=== PATIENT | female | born 1990 | race Caucasian/White ===

== ENCOUNTER 2018-01-26 10:20 | Outpatient (RCR) | payer OTHER, SELFPAY | END 2018-01-26 23:59 | LOC: NS 10:20 | PROVIDERS: Visit Provider Advanced Practice Midwife | DX: O25.10 Malnutrition in pregnancy, unspecified trimester (principal); O26.11 Low weight gain in pregnancy, first trimester; Z3A.12 12 weeks gestation of pregnancy | CPT/HCPCS: 97802 ==

== ENCOUNTER 2018-06-19 08:20 | Inpatient (IN) | payer OTHER, SELFPAY ==
[2018-06-19 07:53] VITALS: BMI 29.2
[2018-06-19 08:14] LABS: ROM Internal Control Test YES-OK TO RESULT pt. (Internal QC)
[2018-06-19 08:15] LABS: ROM Patient Test POSITIVE (Negative)
--- NOTE | 2018-06-19 08:30 | PCM.HP.OB ---
- Problem List (1) Anxiety associated with birthing process Status: Acute (2) PROM (premature rupture of membranes) Status: Acute Qualifiers: PROM onset of labor timing: onset of labor within 24 hours of rupture PROM gestational age: full term Qualified Code(s): O42.02 - Full-term premature rupture of membranes, onset of labor within 24 hours of rupture History Date of Admission: 06/19/18 Final ANCA: 06/29/18 Final ANCA Source: US <20 weeks Gestational age: 38 Weeks and 4 Days History of this : This is a 27 year-old, G [], P [], at weeks gestational age. Allergies No Known Allergies Allergy (Verified 06/19/18 07:53) Home Medications: Home Medications Pnv No.95/Ferrous Fum/Folic AC [ Vitamin Tablet] 1 each PO DAILY 06/19/18 Smoking Status: Never smoker Alcohol: None Number of Fetus(es): 1 Heart Tracing: Baseline 140, moderate variability, + accels, no decels noted TOCO Analysis: Ctx q 2-10 minutes, palpate mild to moderately strong History Past Pregnancies: Past Pregnancies Delivery Date Name GA/Weeks Outcome Route Weight Gender Labor Length Anesthesia Delivery Location Provider FOB Labs: GBS Neg, O Neg Abs Neg, GC/CT Neg, Urine Tox Neg, Urine Culture Neg, CF Screening Neg, HIV NR, HepBsAg Neg, Rubella Imm, Syphilis Neg, Sequential Screen Neg, 1 hour GCT elevated ---> 3 hour GTT WNL Expected Delivery Method: Spontaneous Vaginal Describe any other labor & delivery plans:: Desires NCB, may be interested in Number of Visits: 13 Review of Systems Cardiovascular: Denies: Chest Pain, Edema Gastrointestinal: Denies: Abdominal Pain Genitourinary: Denies: Dysuria, Frequency, Urgency Gynecological: Reports: Vaginal discharge - small celar-pink discharge without odor - c/w amniotic fluid. Denies: Vaginal bleeding Musculoskeletal: Denies: Muscle pain Psychiatric: Reports: Anxiety Endocrine: Denies: Heat/ Cold Intolerance Physical Exam Vitals: See nursing note for vital signs - VSS, Afebrile General: Alert, Oriented x3, Cooperative Cardiovascular: Regular rate, Regular Rhythm Lungs: Normal air movement Abdomen: Soft, Non Tender, Non-Distended, Appropriate for Gestational Age - EFW = 7#-7.5# Extremities:: No edema Neurological: Cranial nerves II-XII grossly intact, Deep Tendon Reflexes 2+/4 and Symmetrical REPLENISHMENT MERCHANDISING ASSOCIATE: Normal external genitalia Estimated gestational size: Appropriate for gestational size Presentation: Cephalic - SVE deferred at this time Assessment/Plan All Active Problems Anxiety associated with birthing process (Acute) PROM (premature rupture of membranes) (Acute) This is a 27 year-old, G [1], P [0], at 38+4 weeks gestational age, +PROM, Category I FHT. P: 1) Admit patient - Dr. Coughlin back-up physician notified of admission 2) Expectant management at this time 3) Patient may ambulate and eat regular diet at this time 4) Will assess cervix with change in maternal or status or once patient is actively william Corina FREITAS
--- NOTE | 2018-06-19 08:35 | HP.PCM_ITS ---
- Problem List (1) Anxiety associated with birthing process Status: Acute (2) PROM (premature rupture of membranes) Status: Acute Qualifiers: PROM onset of labor timing: onset of labor within 24 hours of rupture PROM gestational age: full term Qualified Code(s): O42.02 - Full-term premature rupture of membranes, onset of labor within 24 hours of rupture History Date of Admission: 06/19/18 Final ANCA: 06/29/18 Final ANCA Source: US <20 weeks Gestational age: 38 Weeks and 4 Days History of this : This is a 27 year-old, G [], P [], at weeks gestational age. Allergies No Known Allergies Allergy (Verified 06/19/18 07:53) Home Medications: Home Medications Pnv No.95/Ferrous Fum/Folic AC [ Vitamin Tablet] 1 each PO DAILY 06/19/18 Smoking Status: Never smoker Alcohol: None Number of Fetus(es): 1 Heart Tracing: Baseline 140, moderate variability, + accels, no decels noted TOCO Analysis: Ctx q 2-10 minutes, palpate mild to moderately strong History Past Pregnancies: Past Pregnancies Delivery Date Name GA/Weeks Outcome Route Weight Gender Labor Length Anesthesia Delivery Location Provider FOB Labs: GBS Neg, O Neg Abs Neg, GC/CT Neg, Urine Tox Neg, Urine Culture Neg, CF Sc reening Neg, HIV NR, HepBsAg Neg, Rubella Imm, Syphilis Neg, Sequential Screen Neg, 1 hour GCT elevated ---> 3 hour GTT WNL Expected Infant Delivery Method: Spontaneous Vaginal Describe any other labor & delivery plans:: Desires NCB, may be interested in Number of Visits: 13 Review of Systems Cardiovascular: Denies: Chest Pain, Edema Gastrointestinal: Denies: Abdominal Pain Genitourinary: Denies: Dysuria, Frequency, Urgency Gynecological: Reports: Vaginal discharge - small celar-pink discharge without odor - c/w amniotic fluid. Denies: Vaginal bleeding Musculoskeletal: Denies: Muscle pain Psychiatric: Reports: Anxiety Endocrine: Denies: Heat/ Cold Intolerance Physical Exam Vitals: See nursing note for vital signs - VSS, Afebrile General: Alert, Oriented x3, Cooperative Cardiovascular: Regular rate, Regular Rhythm Lungs: Normal air movement Abdomen: Soft, Non Tender, Non-Distended, Appropriate for Gestational Age - EFW = 7#-7.5# Extremities:: No edema Neurological: Cranial nerves II-XII grossly intact, Deep Tendon Reflexes 2+/4 and Symmetrical OPERATIONS ARCHITECT: Normal external genitalia Estimated gestational size: Appropriate for gestational size Presentation: Cephalic - SVE deferred at this time Assessment/Plan All Active Problems Anxiety associated with birthing process (Acute) PROM (premature rupture of membranes) (Acute) This is a 27 year-old, G [1], P [0], at 38+4 weeks gestational age, +PROM, Category I FHT. P: 1) Admit patient - Dr. Coughlin back-up physician notified of admission 2) Expectant management at this time 3) Patient may ambulate and eat regular diet at this time 4) Will assess cervix with change in maternal or status or once patient is actively william Corina Gutiérrez APRN-SOPHIA
[2018-06-19] MEDS: Lactated Ringers 1,000 ML 50 ML IV (09:10)
[2018-06-19 09:32] LABS: Hematocrit 40.2 % (37-47); Hemoglobin 13.2 g/dl (12.0-15.0); Mean Corp Hgb Conc 32.8 g/gl (32-36); Mean Corpuscular Hgb 30.5 pg (27.0-32.0); Mean Corpuscular Volume 92.8 fL (81-99); Mean Platelet Vol. 9.8 fl (6.2-12.0); Platelet Count 170 K/mm3 (150-450); RBC Distribution Width CV 14.3 % (11.6-14.6); RBC Distribution Width SD 48.8 fl (35.1-43.9); Red Blood Count 4.33 M/mm3 (4.2-5.4); White Blood Count 9.6 K/mm3 (4.4-11.0)
[2018-06-19 09:33] LABS: Scan Indicated on CBC? Y/N NO
--- NOTE | 2018-06-19 11:12 | PCM.PN.OB ---
Patient Problems: Active and Suspected Problems Anxiety associated with birthing process (Acute) PROM (premature rupture of membranes) (Acute) Subjective: Patient moving around the room ambulating, reporting that she continues to have contractions irregular q 2-5 minutes apart and lasting 30-60 seconds. Patient notes continued to desire for expectant management at this time. Patient continues to decline SVE at this time, she also declines discussion re: initiation of IV pitocin for labor augmentation. FHT remains category I at this time. Will continue to support patient, encourage position changes. H+K recommended, sitting/rocking on birthing ball also discussed. Patient at this time has been offered nipple stimulation with breast pump or manual stimulation - she continues to decline. Have discussed option for castor oil with patient - she is considering though castor oil is not in stock with [facility] pharmacy. Will continue to monitor patient closely. Anticipate checking cervix by 12 hours ruptured if no active labor noted. Corina Gutiérrez APRN-CNM - Physical Exam Weight: 165 lb 3.2 oz Body Mass Index (BMI) 29.2 Laboratory Tests Past 24 Hrs 06/19/18 06/19/18 06/19/18 07:40 09:10 09:10 WBC 9.6 RBC 4.33 Hgb 13.2 Hct 40.2 MCV 92.8 MCH 30.5 MCHC 32.8 RDW 14.3 RDW Differential 48.8 H Plt Count 170 MPV 9.8 Vag Amniotic Fld Detect POSITIVE H Blood Type O NEGATIVE Antibody Screen TNP 06/19/18 09:10 WBC RBC Hgb Hct MCV MCH MCHC RDW RDW Differential Plt Count MPV Vag Amniotic Fld Detect Blood Type Antibody Screen NEGATIVE Medical Necessity - Tobacco Use Smoking Status: Never smoker Assessment/Plan All Active Problems Anxiety associated with birthing process (Acute) PROM (premature rupture of membranes) (Acute)
--- NOTE | 2018-06-19 14:13 | PCM.PN.BLA ---
Progress Note Patient currently sitting on peanut ball, rocking back and forth on the floor. Patient has been encouraged to ambulate and to change positions and move around. Discussion re: use of castor oil for labor augmentation again discussed. Patient reports that it seems like contractions may be slowing down. At this point, her and are becoming more open to option of IV pitocin. Encouraged cervical check at this time. Patient desires to wait 2 hours until close to 12 hours ruptured for that check. Discussed again benefits/risks/alternatives of expectant vs. active labor management. Infection risk again reviewed, patient again desires to wait for first cervical check until 4:00pm or 12 hours post rupture. Encouraged continued ambulation and position changes. Will consider cervical sweep also when cervical check is done. Corina Gutiérrez APRN-SOPHIA
--- NOTE | 2018-06-19 16:39 | PN.OBGYN_ITS ---
Patient Problems: Active and Suspected Problems Anxiety associated with birthing process (Acute) PROM (premature rupture of membranes) (Acute) Subjective: Patient pacing around the room, reporting that her contractions have spaced out a little. She is trying to be mobile and active now to bring contractions closer together. Decision mutually made to check patient's cervix at this time. Objective: VSS, Afebrile - last temp 99.2F FHT baseline 140 moderate variability, + accels, no decels noted Ctx irregular q 2-8 minutes, palpate mild to moderate. Ctx duration 30-70 seconds SVE = 4/50/-2, + blood show noted - Physical Exam General: Alert, Oriented x3, Cooperative Neck: Supple Lungs: Clear to auscultation Cardiovascular: Regular rate, Regular Rhythm, No murmurs Abdomen: Soft, Non Tender, Non-Distended, No Hepato-splenomegaly, Gravid Extremities: No edema Neurological: Cranial nerves II-XII grossly intact, Deep Tendon Reflexes 2+/4 and Symmetrical Weight: 165 lb 3.2 oz Body Mass Index (BMI) 29.2 Intake and Output for Last 24 Hours 06/17/18 06/18/18 06/19/18 23:59 23:59 23:59 Intake Total 1750 / 1750 Output Total 950 / 950 Balance 800 / 800 Laboratory Tests Past 24 Hrs 06/19/18 06/19/18 06/19/18 07:40 09:10 09:10 WBC 9.6 RBC 4.33 Hgb 13.2 Hct 40.2 MCV 92.8 MCH 30.5 MCHC 32.8 RDW 14.3 RDW Differential 48.8 H Plt Count 170 MPV 9.8 Vag Amniotic Fld Detect POSITIVE H Blood Type O NEGATIVE Antibody Screen TNP 06/19/18 09:10 WBC RBC Hgb Hct MCV MCH MCHC RDW RDW Differential Plt Count MPV Vag Amniotic Fld Detect Blood Type Antibody Screen NEGATIVE Medical Necessity - Tobacco Use Smoking Status: Never smoker Assessment/Plan All Active Problems Anxiety associated with birthing process (Acute) PROM (premature rupture of membranes) (Acute) 27 y/o @ 38.4 weeks, SROM x 12 hours, Category I FHT P: 1) Recommend IV pitocin for labor augmentation at this time. Benefits/ris ks/alternatives of this method reviewed - patient desires to talk with her about this option. Continues to decline other natural induction methods. Had planned for membrane sweep with SVE but then during exam she declined that also. 2) Dr. Coughlin appraised of patient progress - she also recommends pitocin at this time 3) Reassess cervix PRN with change in maternal or status Corina FREITAS
--- NOTE | 2018-06-19 17:38 | PCM.PN.BLA ---
Progress Note This provider again is in patient room discussing recommendation for pitocin augmentation at this time. Patient again has many questions re: this medication and desires a repeat discussion on benefits/risks/alternatives. Infection risk of prolonged rupture of membranes discussed. Risks of FHT variable decelerations with prolonged rupture of membranes also reviewed. Patient reports fears re: birthing process. Discussed again options for epidural as patient is concerned of sensations as baby is emerging and . Patient again choosing to decline this option - reports that this will make her feel not in control. Patient reports that she has made decision that we can start pitocin soon. Encouraged patient again for us to start immediately to decrease infection risk. Corina FREITAS
[2018-06-19] MEDS: Oxytocin 30 units/NS 500 ml 30 UNITS/500 ML IV.SOLN IV (18:14)
--- NOTE | 2018-06-19 19:57 | PCM.PN.OB ---
Patient Problems: Active and Suspected Problems Anxiety associated with birthing process (Acute) PROM (premature rupture of membranes) (Acute) Subjective: Patient sitting up in bed at this time, currently receiving IV pitocin per labor augmentation protocol. Currently at 4 milliunits with plan to increase to 6 milliunits soon. Patient continues to have many questions re: what to expect with pitocin, what to expect with labor and and how she will know that the baby is coming. Labor teaching done by this provider at the bedside. Objective: VSS, Afebrile - last temp 99.1F FHT baseline 135 moderate variability, no decels, + accels Ctx q 2-5 minutes palpate mild to moderate in strength SVE = deferred d/t patient declining an exam - Physical Exam General: Alert, Oriented x3, Cooperative Psych/Mental Status: Anxious Weight: 165 lb 3.2 oz Body Mass Index (BMI) 29.2 Intake and Output for Last 24 Hours 06/17/18 06/18/18 06/19/18 23:59 23:59 23:59 Intake Total 1750 / 1750 Output Total 950 / 950 Balance 800 / 800 Laboratory Tests Past 24 Hrs 06/19/18 06/19/18 06/19/18 07:40 09:10 09:10 WBC 9.6 RBC 4.33 Hgb 13.2 Hct 40.2 MCV 92.8 MCH 30.5 MCHC 32.8 RDW 14.3 RDW Differential 48.8 H Plt Count 170 MPV 9.8 Vag Amniotic Fld Detect POSITIVE H Blood Type O NEGATIVE Antibody Screen TNP 06/19/18 09:10 WBC RBC Hgb Hct MCV MCH MCHC RDW RDW Differential Plt Count MPV Vag Amniotic Fld Detect Blood Type Antibody Screen NEGATIVE Medical Necessity - Tobacco Use Smoking Status: Never smoker Assessment/Plan All Active Problems Anxiety associated with birthing process (Acute) PROM (premature rupture of membranes) (Acute) 27 y/o @ 38.4 weeks, Category I FHT, SROM x 16 hours, Pitocin Labor Augmentation P: 1) Continue pitocin titration at this time 2) Reassess SVE PRN with changes to maternal or status 3) Anticipate Corina Gutiérrez APRN-CNM
--- NOTE | 2018-06-20 00:40 | PCM.PN.OB ---
Patient Problems: Active and Suspected Problems Anxiety associated with birthing process (Acute) PROM (premature rupture of membranes) (Acute) Subjective: Patient has been in and out of shower and bathtub, reports that she is starting to feel intense pelvic and rectal pressure and starting to feel urge to push. Patient and request SVE at this time to assess for labor progress. Objective: VSS, Afebrile FHT baseline 120, moderate variability, + accels, early decels noted Ctx q 1-3 minutes, strongly palpable. Pitocin at 8 milliunits at this time SVE = 8-9/90/0, baby ROE by Best's and assessment of sutures - Physical Exam General: Alert, Oriented x3, Cooperative HEENT: Atraumatic Lungs: Normal air movement Cardiovascular: Regular rate, Regular Rhythm Abdomen: Soft, Non Tender, Non-Distended Extremities: No edema Psych/Mental Status: Anxious Weight: 165 lb 3.2 oz Body Mass Index (BMI) 29.2 Intake and Output for Last 24 Hours 06/18/18 06/19/18 06/20/18 23:59 23:59 23:59 Intake Total 1750 / 1750 Output Total 950 / 950 Balance 800 / 800 Laboratory Tests Past 24 Hrs 06/19/18 06/19/18 06/19/18 07:40 09:10 09:10 WBC 9.6 RBC 4.33 Hgb 13.2 Hct 40.2 MCV 92.8 MCH 30.5 MCHC 32.8 RDW 14.3 RDW Differential 48.8 H Plt Count 170 MPV 9.8 Vag Amniotic Fld Detect POSITIVE H Blood Type O NEGATIVE Antibody Screen TNP 06/19/18 09:10 WBC RBC Hgb Hct MCV MCH MCHC RDW RDW Differential Plt Count MPV Vag Amniotic Fld Detect Blood Type Antibody Screen NEGATIVE Medical Necessity - Tobacco Use Smoking Status: Never smoker Assessment/Plan All Active Problems Anxiety associated with birthing process (Acute) PROM (premature rupture of membranes) (Acute) 27 y/o @ 38+5 weeks, Transition Stage of Labor, Category I FHT P: 1) Continue pitocin at current level at this time 2) Anticipate 3) Continue to support patient Corina FREITAS
[2018-06-20] MEDS: Oxytocin 30 units/NS 500 ml 30 UNITS/500 ML IV.SOLN 334 UNITS IV (01:50)
[2018-06-20] MEDS: Oxytocin 30 units/NS 500 ml 30 UNITS/500 ML IV.SOLN 167 UNITS IV (02:20)
--- NOTE | 2018-06-20 02:33 | PCM.OB.VAG ---
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 At that time patient having infrequent contractions but requested expectant management of labor. By 14 hours post SROM patient had consented to pitocin IV augmentation. Amniotic Membrane Rupture Type: Spontaneous at home Rupture of Membrane time: 06/19/18 @ 0400 Amniotic Fluid Description: Clear Final ANCA: 06/29/18 Gestational age: 38 Weeks and 5 Days Industry doctor who attended delivery (if requested by OB): Ayesha Davis Date of Procedure: 06/20/18 Pre-Operative Diagnosis: PROM with onset of labor @ 38+5 weeks Post-Operative Diagnosis: of viable boy baby, shoulder dystocia Surgery/ Procedure Performed: Spontaneous Vaginal Delivery Type of Anesthesia: None Description of Procedure: Patient progressed well and started to feel urge to bear down and push. Patient pushed well with maternal urge in hands and knees position until crown. Patient delivered head OA and shoulders were not initially forthcoming. Compound anterior shoulder noted. Patient flipped from H+K Lanny position to recumbent postion where Ish with Subrapubic Pressure was administered. Delivery not imminent. Rubins with attempt to deliver posterior arm (rt. arm) done and shoulders were then delivered and body quickly followed. delivered ROE position. See Shoulder Dystocia Summary. initially had poor tone and no respiratory effort. When infant placed on maternal abdomen and was dried and stimulated baby became vigorous and had spontaneous cry and respirations. Mouth and nose bulb suctioned. Umbilical cord clamped and cut and baby was handed off to awaiting pediatric team for evaluation. Apgars 8 and 9. weight pending. Placenta then delivered spontaneously via Price mechanism. Placenta intact with 3VC, placental triage WNL. FF to massage midline 2FB below umbilicus, 3rd stage pitocin infused per protocol for active management of the 3rd stage. EBL = 150cc. Upon inspection of vaginal vault, 1st degree perineal laceration noted and was repaired in the usual fashion under local 1% lidocaine analgesia and 3-0 Rapide suture. Sponge and needle count correct. Vaginal sweep negative. Dr. Coughlin notified of delivery. Bonding and [id number] initiated. Corina Gutiérrez SYSTEM ANALYST-CNM Presentation: Vertex, ROE Placental Delivery Description: Spontaneous Placenta Disposition: [facility] Cord Vessel Description: 3 Vessels Cord Entanglement: None Estimated Blood Loss: 150 A gender: Male (1 minute): 8 (5 minute): 9 Episiotomy Description: None Laceration: Perineal Extension/lac, 1st degree Medications given after delivery: IV Pitocin Complications: None
--- NOTE | 2018-06-20 02:37 | OP.PCM_ITS ---
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 At that time patient having infrequent contractions but requested expectant management of labor. By 14 hours post SROM patient had consented to pitocin IV augmentation. Amniotic Membrane Rupture Type: Spontaneous at home Rupture of Membrane time: 06/19/18 @ 0400 Amniotic Fluid Description: Clear Final ANCA: 06/29/18 Gestational age: 38 Weeks and 5 Days [place] doctor who attended delivery (if requested by OB): Ayesha Davis Date of Procedure: 06/20/18 Pre-Operative Diagnosis: PROM with onset of labor @ 38+5 weeks Post-Operative Diagnosis: of viable boy baby, shoulder dystocia Surgery/ Procedure Performed: Spontaneous Vaginal Delivery Type of Anesthesia: None Description of Procedure: Patient progressed well and started to feel urge to bear down and push. Patient pushed well with maternal urge in hands and knees position until crown. Patient delivered head OA and shoulders were not initially forthcoming. Compound anterior shoulder noted. Patient flipped from H+K Lanny position to recumbent postion where Ish with Subrapubic Pressure was administered. Delivery not imminent. Rubins with attempt to deliver posterior arm (rt. arm) done and shoulders were then delivered and body quickly followed. delivered ROE position. See Shoulder Dystocia Summary. initially had poor tone and no respiratory effort. When infant placed on maternal abdomen and was dried and stimulated baby became vigorous and had spontaneous cry and respirations. Mouth and nose bulb suctioned. Umbilical cord clamped and cut and baby was handed off to awaiting pediatric team for evaluation. Apgars 8 and 9. weight pending. Placenta then delivered spontaneously via Price mechanism. Placenta intact w ith 3VC, placental triage WNL. FF to massage midline 2FB below umbilicus, 3rd stage pitocin infused per protocol for active management of the 3rd stage. EBL = 150cc. Upon inspection of vaginal vault, 1st degree perineal laceration noted and was repaired in the usual fashion under local 1% lidocaine analgesia and 3-0 Rapide suture. Sponge and needle count correct. Vaginal sweep negative. Dr. Coughlin notified of delivery. Bonding and [id number] initiated. Corina Gutiérrez EMPLOYEE WELFARE MANAGER-CNM Presentation: Vertex, ROE Placental Delivery Description: Spontaneous Placenta Disposition: [facility] Cord Vessel Description: 3 Vessels Cord Entanglement: None Estimated Blood Loss: 150 Infant A gender: Male (1 minute): 8 (5 minute): 9 Episiotomy Description: None Laceration: Perineal Extension/lac, 1st degree Medications given after delivery: IV Pitocin Complications: None
[2018-06-20] MEDS: Ibuprofen 600 MG Tablet PO ×4 (03:07→22:26)
[2018-06-20 04:00] VITALS: BP 110/70; PULSE 97; RESP 17; TEMP 37.2
[2018-06-20] MEDS: Acetaminophen 500 MG Tablet 1000 MG PO ×2 (07:48→17:59)
[2018-06-20 08:00] VITALS: BP 119/76; PULSE 93; RESP 18; TEMP 37
[2018-06-20 11:33] VITALS: BP 102/65; PULSE 104; RESP 18; TEMP 37.1
[2018-06-20 15:22] VITALS: BP 109/69; PULSE 99; RESP 18; TEMP 36.9
[2018-06-20 19:41] VITALS: BP 100/58; PULSE 98; RESP 15; TEMP 37.2; O2SAT 97
[2018-06-20 23:40] VITALS: BP 106/66; PULSE 89; RESP 16; TEMP 36.9; O2SAT 95
[2018-06-21] MEDS: Acetaminophen 500 MG Tablet 1000 MG PO ×2 (02:01→10:03)
[2018-06-21 02:35] VITALS: BP 95/68; PULSE 89; RESP 16; TEMP 36.7; O2SAT 95
[2018-06-21] MEDS: Ibuprofen 600 MG Tablet PO ×2 (04:30→11:41)
[2018-06-21 08:30] VITALS: BP 118/72; PULSE 98; RESP 14; TEMP 36.7; O2SAT 96
[2018-06-21] MEDS: Senna/Docusate Sodium 1 Tablet PO (10:03)
--- NOTE | 2018-06-21 11:40 | NURSING ---
education provided on proper preparation of powder formula. taught that no special cleaning or care needs to be done to uncircumcised penis.
--- NOTE | 2018-06-21 12:24 | PCM.PN.OB ---
Subjective: Patient doing well. Pain is well controlled. Denies lightheadedness, dizziness, shortness of breath, chest pain, leg pain. Lochia decreasing. She is bottle feeding. Tolerating regular diet without nausea or vomiting. Ambulating and voiding without difficulty. She feels ready to go home today. - Physical Exam General: Alert, No apparent distress HEENT: Atraumatic Lungs: - - No increased resp effort Abdomen: Soft, Non Tender, - - FF@U-1 Extremities: No edema, No Calf Tenderness Skin: No rashes Neurological: Neuro grossly intact Psych/Mental Status: Normal Affect, Appropriate Vital Signs Temp Pulse Resp BP Pulse Ox 98.1 F 98 14 118/72 96 06/21/18 08:30 06/21/18 08:30 06/21/18 08:30 06/21/18 08:30 06/21/18 08:30 Oxygen Delivery Method Room Air Weight: 165 lb 3.2 oz Body Mass Index (BMI) 29.2 Intake and Output for Last 24 Hours 06/19/18 06/20/18 06/21/18 23:59 23:59 23:59 Intake Total 1750 / 1750 900 / 900 Output Total 950 / 950 Balance 800 / 800 900 / 900 Medical Necessity - Tobacco Use Smoking Status: Never smoker Assessment/Plan All Active Problems Anxiety associated with birthing process (Resolved) PROM (premature rupture of membranes) (Resolved) Shoulder dystocia during labor and delivery, delivered (Resolved) First degree perineal laceration during delivery (Resolved) PPD#1 s/p - Doing well - Bottle feeding - control: Her plan is abstinence for now and OCP's after 6 weeks - Dispo: D/c home today. Reviewed discharge instructions
--- NOTE | 2018-06-21 12:28 | DCINST_ITS ---
Discharge Diet: No Restrictions Discharge Activity: Return to Normal Activity, May Drive, May Shower May resume sexual activity in: 6 weeks Weight Bearing Status: Weight bearing as tolerated Lifting Restrictions: None Call your doctor if you observe: Fever of 101 or Higher, Inability to urinate, Inability to have a bowel movement, Using more than one pad per hour, Shortness of breath, Dizziness, Chest pain, Increased palpitations (irregular heartbeat), Calf discomfort, Uncontrolled pain Cleanse incision/area with: Soap & Water Instructions: After a Vaginal Additional Instructions: If you experience any of the following, contact your healthcare provider. * Bleeding that soaks a pad every hour for 2 hours * Fever 100.4 or higher * Unrelieved incision or abdominal pain * Swelling, redness, discharge or bleeding from your incision or episiotomy site * Your incision begins to separate * Problems urinating (including inability to urinate or burning while urinating). * Visual changes * Severe headache * Flu-like symptoms * Pain or redness in one of both of your breasts * Pain, warmth, tenderness or swelling in your legs, especially the calf area * Frequent nausea and vomiting * Symptoms of depression or anxiety If you experience any of the following, call 911 or go to the nearest Emergency Room. * Chest pain * Problems breathing * Seizure activity * Partial or complete paralysis of a body part, slurred speech, weakness or drooping of the face, or a sudden inability to walk or hold your balance Allergies/Adverse Reactions: Allergies No Known Allergies Allergy (Verified 06/19/18 07:53) Medications to take at Discharge Pnv No.95/Ferrous Fum/Folic AC [ Vitamin Tablet] 1 each PO DAILY 06/19/18 Acetaminophen [Tylenol] 1,000 mg PO Q8H PRN PRN tablet 06/20/18 Ibuprofen [Motrin] 600 mg PO Q6H PRN PRN tablet 06/20/18 Please Follow Up With: Corina Gutiérrez CNM When: 1-2 weeks if you desires. Otherwise to be seen in 4-6 weeks for visit Primary Care Physician: Francisca Marshall DO [Primary Care Provider] - Test Results: Test results from this visit will be discussed in further detail at your follow- up appointment, if applicable.
[2018-06-21 14:40] VITALS: BP 107/66; PULSE 89; RESP 14; TEMP 36.6; O2SAT 98
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
--- NOTE | 2018-06-25 16:58 | NURSING ---
Arabella Babcock and Guerline were amazing patient stated at follow up phone call. Doing well. Baby eating well.
--- OUTSIDE RECORDS SUMMARY | 2018-08-23 09:12 | XMS RPT_ITS ---
:1990 Author Organization OHIP Care Team Providers Name Role Phone SOPHIA PAINTING CNM Attending Unavailable PHYSICIAN, PATIENT UNSURE Primary Care Unavailable PAINTING IRA (CNM) Attending Unavailable PAINTING, IRA (CNM) Attending Unavailable PAINTING, IRA (CNM) Referring Unavailable JAMES, MYLES A Attending Unavailable PAINTING, RIA (CNM) Referring Unavailable PAINTING IRA (CNM) Referring Unavailable CONCHITA SERRA Attending Unavailable PAINTING, IRA (CNM) Referring Unavailable JAMES, MYLES A Referring Unavailable JAMES, MYLES A Attending Unavailable MERT IRA (CNM) Referring Unavailable CONCHITA SERRA Attending Unavailable MERT, IRA (CNM) Referring Unavailable PAINTING IRA (CNM) Attending Unavailable PAINTING, IRA (CNM) Referring Unavailable JAMES, MYLES A Attending Unavailable PAINTING, IRA (CNM) Referring Unavailable MERT IRA (CNM) Attending Unavailable MERT IRA (CNM) Referring Unavailable PAINTING, IRA (CNM) Referring Unavailable PAINTING, IRA (CNM) Referring Unavailable PAINTING, IRA (CNM) Attending Unavailable CONCHITA SERRA Attending Unavailable PAINTING, IRA (CNM) Attending Unavailable PAINTING, IRA (CNM) Attending Unavailable PAINTING, IRA (CNM) Attending Unavailable PAINTING, IRA (CNM) Attending Unavailable Neykahlilt-Coughlin, Keely Attending Unavailable Neykahlilt-Coughlin, Keely Referring Unavailable RolandoTanyaFrancisca Primary Care Unavailable Neyhart-Coughlin, Keely Admitting Unavailable Mert Ira Attending Unavailable Mert Ira Attending Unavailable PROBLEMS PROBLEMS DATE TYPE CONDITION / CODE ATTENDING STATUS SOURCE 04/16/2018 Active Anemia complicating Active [facility] , [place] unspecified Repository trimester / O99.019(ICD-10) 04/16/2018 Active Iron deficiency [facility] anemia, unspecified [place] / D50.9(ICD-10) Repository 04/07/2018 Active 28 weeks gestation Active [facility] of / [place] Z3A.28(ICD-10) Repository 01/30/2018 Unknown R63.0 - Anorexia / Ira Painting Active [place] R63.0(ICD-10) Repository 12/16/2017 Active Family history of [facility] carrier of genetic [place] disease / Repository Z84.81(ICD-10) 12/16/2017 Active Family history of Active [facility] other congenital [place] malformations, Repository deformations and chromosomal abnormalities / Z82.79(ICD-10) 11/10/2017 Active Encounter for Active [facility] supervision of [place] normal first Repository , first trimester / Z34.01(ICD-10) 12/16/2017 Active 12 weeks gestation NA Active [facility] of / [place] Z3A.12(ICD-10) Repository 12/16/2017 Active Encounter for Active [facility] screening [place] for nuchal Repository translucency / Z36.82(ICD-10) 12/16/2017 Active Encounter for Active [facility] [place] screening, Repository unspecified / Z36.9(ICD-10) 11/10/2017 Active Unknown / IRA PAINTING Active [facility] UNK(Unknown) (CNM) [place] Repository PROCEDURES PROCEDURES No Procedure Records FoundRESULTS RESULTS PROGRESS Observed: 06/24/2018 Status: COMPLETED Source: [place] 10:11 AM [facility] REPOSITORY HNO ID: [id number] Author: Mira Duncan LPN Service: (none) Author Type: (none) Type: Progress Notes Filed: 06/24/2018 10:20 AM Note Text: Pt delivered via at [facility] on 06/20/18 per Corina Gutiérrez. See OB Outcome note. Spoke with pt PP and she reports that she is doing well and has no c/o. the dysuria that she had yesterday is greatly improved and she is not having any pain. PP appt scheduled. Mira Duncan LPN UA Collected: 06/23/2018 Status: F Source: [facility] 5:17 PM [facility] REPOSITORY TYPE CODE TESTS RESULT OUT OF RANGE REFERENCE UNITS LAB SPCUA(GREGG NC) UA Specimen Type Void LAB CLRUA(GREGG NC) UA Color PINK LAB APPUA(GREGG Clear NC) UA Appear Clear LAB SGUA(LOIN 1.015-1.025 C) UA Spec Unknown Grav <=1.005 LAB GLUA(LOIN Negative mg/dL C) UA Glucose Negative LAB BILUA(GREGG Negative NC) UA Bili Negative LAB KETUA(GREGG Negative mg/dL NC) UA Ketones Negative LAB BLDUA(GREGG Negative NC) UA Blood Unknown Large LAB PHUA(LOIN 5.0 - 8.0 C) UA pH 7.0 LAB PROUA(GREGG Negative mg/dL NC) UA Protein Trace LAB UROUA(GREGG 0.2-1.0 E.U./dL NC) UA Urobilinogen 0.2 LAB NITUA(GREGG Negative NC) UA Nitrite Negative LAB LEUUA(GREGG Negative NC) UA Leuk Est Unknown Moderate Performed By: #### UA #### [place] [address] Observed: 06/23/2018 Status: F Source: [facility] 5:17 PM [facility] REPOSITORY . MICRO - Microbiology PROCEDURE: Urine Culture [*1] SOURCE: Urine BODY SITE: COLLECTED DATE/TIME: 06/23/2018 17:17 EST RECEIVED DATE/TIME: 06/24/2018 14:55 EST START DATE/TIME: 06/24/2018 14:56 EST FREE TEXT SOURCE: FINAL REPORTS Final Report [] Verified Date/Time/Personnel: 06/26/2018 08:29 EST 10,000 organisms per mL Mixed without predominant isolate(s). Sensitivity Testing not indicated. Probably contamination. Repeat culture suggested. PRELIMINARY REPORTS Preliminary Report [] Verified Date/Time/Personnel: 06/25/2018 08:04 EST No growth to date Performing Locations *1: This test was performed at: [facility], [address] [place] [address], [phone] , [facility] Performed By: #### CUR #### [address] [address] DISCHARGE INSTRUCTION Observed: 06/21/2018 Status: F Source: [place] 12:28 PM [facility] REPOSITORY [facility] Medical Records Department [address] [place] [address] Instructions for Home/Discharge Instructions 06/21/18 1227 MR#: [id number] Acct: [id number] Name: IRA ÁLVAREZ Rep #: [id number] : 1990 27 From: Avani Joshi DO PCP: Francisca Marshall DO Status: ADM IN Discharge Diet: No Restrictions Discharge Activity: Return to Normal Activity, May Drive, May Shower May resume sexual activity in: 6 weeks Weight Bearing Status: Weight bearing as tolerated Lifting Restrictions: None Call your doctor if you observe: Fever of 101 or Higher, Inability to urinate, Inability to have a bowel movement, Using more than one pad per hour, Shortness of breath, Dizziness, Chest pain, Increased palpitations (irregular heartbeat), Calf discomfort, Uncontrolled pain Cleanse incision/area with: Soap AND Water Instructions: After a Vaginal Additional Instructions: If you experience any of the following, contact your healthcare provider. * Bleeding that soaks a pad every hour for 2 hours * Fever 100.4 or higher * Unrelieved incision or abdominal pain * Swelling, redness, discharge or bleeding from your incision or episiotomy site * Your incision begins to separate * Problems urinating (including inability to urinate or burning while urinating). * Visual changes * Severe headache * Flu-like symptoms * Pain or redness in one of both of your breasts * Pain, warmth, tenderness or swelling in your legs, especially the calf area * Frequent nausea and vomiting * Symptoms of depression or anxiety If you experience any of the following, call 911 or go to the nearest Emergency Room. * Chest pain * Problems breathing * Seizure activity * Partial or complete paralysis of a body part, slurred speech, weakness or drooping of the face, or a sudden inability to walk or hold your balance Allergies/Adverse Reactions: Allergies No Known Allergies Allergy (Verified 06/19/18 07:53) Medications to take at Discharge Pnv No.95/Ferrous Fum/Folic AC [ Vitamin Tablet] 1 each PO DAILY 06/19/18 Acetaminophen [Tylenol] 1,000 mg PO Q8H PRN PRN tablet 06/20/18 Ibuprofen [Motrin] 600 mg PO Q6H PRN PRN tablet 06/20/18 Please Follow Up With: Corina Gutiérrez CNM When: 1-2 weeks if you desires. Otherwise to be seen in 4- 6 weeks for visit Primary Care Physician: Francisca Marshall DO [Primary Care Provider] - Test Results: Test results from this visit will be discussed in further detail at your follow-up appointment, if applicable. 06/21/18 1228 <Electronically signed by Avani Joshi DO> Date Avani Joshi DO CC: Francisca Marshall DO Signed RH NEGATIVE MOM Collected: 06/20/2018 Status: F Source: [place] 7:35 AM [facility] REPOSITORY Order Comment: Baby's Full Name Fausto Álvarez Baby's Bracelet # [id number] Baby's MR # [id number] TYPE CODE TESTS RESULT OUT OF RANGE REFERENCE UNITS LAB B101.0425 O Normal MOM'S ABO NEGATIVE RH LAB B101.0450 Normal MOM'S ABS NEGATIVE LAB B101.0500 NEGATIVE Normal NEGATIVE SCREEN LAB B101.0950 O Normal BABY'S POSITIVE ABO RH LAB B101.1000 NEGATIVE Normal BABY'S NEGATIVE HIMA Performed By: #### B101.0300 #### [facility] [address] [place], [address] OPERATIVE REPORT Observed: 06/20/2018 Status: F Source: [place] 2:51 AM [facility] REPOSITORY [facility] Medical Records Department [address] [place] [address] Operative Report 06/20/18 0233 MR#: [id number] Acct: [id number] Name: IRA ÁLVAREZ Rep #: [id number] : 1990 27 From: Corina Gutiérrez CNM PCP: Francisca Marshall DO Status: ADM IN Y Location: [id number] - Problem List (1) Anxiety associated with birthing process Status: Resolved (2) PROM (premature rupture of membranes) Status: Resolved Qualifiers: PROM onset of labor timing: onset of labor within 24 hours of rupture PROM gestational age: full term Qualified Code(s): O42.02 - Full-term premature rupture of membranes, onset of labor within 24 hours of rupture (3) Shoulder dystocia during labor and delivery, delivered Status: Resolved (4) First degree perineal laceration during delivery Status: Resolved Vaginal Delivery Maternal Presentation: Active Labor Patient presented shipping and receiving of 06/19/18 reporting SROM for pink clear fluid at 0400. At that time patient having infrequent contractions but requested expectant management of labor. By 14 hours post SROM patient had consented to pitocin IV augmentation. Amniotic Membrane Rupture Type: Spontaneous at home Rupture of Membrane time: 06/19/18 @ 0400 Amniotic Fluid Description: Clear Final ANCA: 06/29/18 Gestational age: 38 Weeks and 5 Days [place] doctor who attended delivery (if requested by OB): Ayesha Davis Date of Procedure: 06/20/18 Pre-Operative Diagnosis: PROM with onset of labor @ 38+5 weeks Post-Operative Diagnosis: of viable boy baby, shoulder dystocia Surgery/ Procedure Performed: Spontaneous Vaginal Delivery Type of Anesthesia: None Description of Procedure: Patient progressed well and started to feel urge to bear down and push. Patient pushed well with maternal urge in hands and knees position until crown. Patient delivered head OA and shoulders were not initially forthcoming. Compound anterior shoulder noted. Patient flipped from H+K Lanny position to recumbent postion where Ish with Subrapubic Pressure was administered. Delivery not imminent. Rubins with attempt to deliver posterior arm (rt. arm) done and shoulders were then delivered and body quickly followed. Infant delivered ROE position. See Shoulder Dystocia Summary. initially had poor tone and no respiratory effort. When infant placed on maternal abdomen and was dried and stimulated baby became vigorous and had spontaneous cry and respirations. Mouth and nose bulb suctioned. Umbilical cord clamped and cut and baby was handed off to awaiting pediatric team for evaluation. Apgars 8 and 9. weight pending. Placenta then delivered spontaneously via Price mechanism. Placenta intact with 3VC, placental triage WNL. FF to massage midline 2FB below umbilicus, 3rd stage pitocin infused per protocol for active management of the 3rd stage. EBL = 150cc. Upon inspection of vaginal vault, 1st degree perineal laceration noted and was repaired in the usual fashion under local 1% lidocaine analgesia and 3-0 Rapide suture. Sponge and needle count correct. Vaginal sweep negative. Dr. Coughlin notified of delivery. Bonding and [id number] initiated. Corina FREITAS Presentation: Vertex, ROE Placental Delivery Description: Spontaneous Placenta Disposition: [facility] Cord Vessel Description: 3 Vessels Cord Entanglement: None Estimated Blood Loss: 150 Infant A gender: Male (1 minute): 8 (5 minute): 9 Episiotomy Description: None Laceration: Perineal Extension/lac, 1st degree Medications given after delivery: IV Pitocin Complications: None 06/20/18 0251 <Electronically signed by Corina Gutiérrez CNM> Date Corina Gutiérrez CNM CC: SOPHIA Gutiérrez; Keely Kay MD; Francisca Marshall DO Signed RHOGAM Collected: 06/20/2018 Status: F Source: [place] 12:00 AM [facility] REPOSITORY TYPE CODE TESTS RESULT OUT OF REFERENCE UNITS RANGE LAB U100.2500 [id number] TRANSFUSED PRODUCT: Rho(D) Immune Globulin RhoGam COUNT: 1 Performed By: #### U100.2500 #### [facility] - refer to report for specific site CBC-COMPLETE BLOOD CNT Collected: 06/19/2018 Status: F Source: [place] NO DIFF 9:10 AM [facility] REPOSITORY TYPE CODE TESTS RESULT OUT OF RANGE REFERENCE UNITS LAB L100.1000 4.4-11.0 K/mm3 Normal WBC 9.6 LAB L100.1200 4.2-5.4 M/mm3 Normal RBC 4.33 LAB L100.1300 12.0-15.0 g/dl Normal HGB 13.2 LAB L100.1400 37-47 % Normal HCT 40.2 LAB L100.1500 81-99 fL Normal MCV 92.8 LAB L100.1600 27.0-32.0 pg Normal MCH 30.5 LAB L100.1700 32-36 g/gl Normal MCHC 32.8 LAB L100.1810 11.6-14.6 % Normal RDW CV 14.3 LAB L100.1820 35.1-43.9 fl High RDW SD 48.8 LAB L100.1900 150-450 K/mm3 Normal PLT 170 LAB L100.2000 6.2-12.0 fl Normal MPV 9.8 Performed By: #### L100.0500 #### [facility] [address] [facility] [place], [place], [address] TYPE AND SCREEN Collected: 06/19/2018 Status: F Source: [place] 9:10 AM [facility] REPOSITORY Order Comment: Reason for Type AND Screen/Red Cells: ROUTINE TYPE CODE TESTS RESULT OUT OF RANGE REFERENCE UNITS LAB B10.0800 O Normal BLOOD TYPE GEL NEGATIVE LAB B100.4000 Test Normal Antibody not performed Screen Performed By: #### B101.7450 #### [facility] [address] [facility] [place], [place], [address] ANTIBODY SCREEN, Collected: 06/19/2018 Status: F Source: [place] INDIRECT 9:10 AM [facility] REPOSITORY TYPE CODE TESTS RESULT OUT OF RANGE REFERENCE UNITS LAB B100.7000 Normal ANTIBODY NEGATIVE SCREEN Performed By: #### B100.7000 #### [facility] [address] [facility] [place] [place], [address] HISTORY AND PHYSICAL Observed: 06/19/2018 Status: F Source: [place] EXAM 8:51 AM [facility] REPOSITORY [facility] Medical Records Department [address] [place] [address] History and Physical 06/19/18 0830 MR#: [id number] Acct: [id number] Name: IRA ÁLVAREZ Rep #: [id number] : 1990 27 From: Corina Gutiérrez CNM PCP: Francisca Marshall DO Status: ADM IN Y Location: [place] [id number] - Problem List (1) Anxiety associated with birthing process Status: Acute (2) PROM (premature rupture of membranes) Status: Acute Qualifiers: PROM onset of labor timing: onset of labor within 24 hours of rupture PROM gestational age: full term Qualified Code(s): O42.02 - Full-term premature rupture of membranes, onset of labor within 24 hours of rupture History Date of Admission: 06/19/18 Final ANCA: 06/29/18 Final ANCA Source: US <20 weeks Gestational age: 38 Weeks and 4 Days History of this : This is a 27 year-old, G [], P [], at weeks gestational age. Allergies No Known Allergies Allergy (Verified 06/19/18 07:53) Home Medications: Home Medications Pnv No.95/Ferrous Fum/Folic AC [ Vitamin Tablet] 1 each PO DAILY 06/19/18 Smoking Status: Never smoker Alcohol: None Number of Fetus(es): 1 Heart Tracing: Baseline 140, moderate variability, + accels, no decels noted TOCO Analysis: Ctx q 2-10 minutes, palpate mild to moderately strong History Past Pregnancies: Past Pregnancies Delivery Name GA/Weeks Outcome Route WeiInfant GeLabor LenAnesthesiDelivery Provider FOB Date ght nder gth a Location Labs: GBS Neg, O Neg Abs Neg, GC/CT Neg, Urine Tox Neg, Urine Culture Neg, CF Screening Neg, HIV NR, HepBsAg Neg, Rubella Imm, Syphilis Neg, Sequential Screen Neg, 1 hour GCT elevated ---> 3 hour GTT WNL Expected Delivery Method: Spontaneous Vaginal Describe any other labor AND delivery plans:: Desires NCB, may be interested in Number of Visits: 13 Review of Systems Cardiovascular: Denies: Chest Pain, Edema Gastrointestinal: Denies: Abdominal Pain Genitourinary: Denies: Dysuria, Frequency, Urgency Gynecological: Reports: Vaginal discharge - small celar-pink discharge without odor - c/w amniotic fluid. Denies: Vaginal bleeding Musculoskeletal: Denies: Muscle pain Psychiatric: Reports: Anxiety Endocrine: Denies: Heat/ Cold Intolerance Physical Exam Vitals: See nursing note for vital signs - VSS, Afebrile General: Alert, Oriented x3, Cooperative Cardiovascular: Regular rate, Regular Rhythm Lungs: Normal air movement Abdomen: Soft, Non Tender, Non-Distended, Appropriate for Gestational Age - EFW = 7#-7.5# Extremities:: No edema Neurological: Cranial nerves II-XII grossly intact, Deep Tendon Reflexes 2+/4 and Symmetrical PHARMACIST AIDE: Normal external genitalia Estimated gestational size: Appropriate for gestational size Presentation: Cephalic - SVE deferred at this time Assessment/Plan All Active Problems Anxiety associated with birthing process (Acute) PROM (premature rupture of membranes) (Acute) This is a 27 year-old, G [1], P [0], at 38+4 weeks gestational age, +PROM, Category I FHT. P: 1) Admit patient - Dr. Coughlin back-up physician notified of admission 2) Expectant management at this time 3) Patient may ambulate and eat regular diet at this time 4) Will assess cervix with change in maternal or status or once patient is actively william Corina FREITAS 06/19/18 0851 <Electronically signed by Corina Gutiérrez CNM> Date Corina Gutiérrez CNM Cosigner Signature: Date (if applicable) CC: SOPHIA Gutiérrez; Francisca Marshall DO Signed (ROM) RUPTURE OF Collected: 06/19/2018 Status: F Source: [place] [facility] 7:40 AM [facility] REPOSITORY TYPE CODE TESTS RESULT OUT OF REFERENCE UNITS RANGE LAB L205.1310 Negative High ROM POSITIVE Result Comment: Amniotic fluid present indicates rupture of Membranes. RESULTS CALLED TO MINH ZAMAN 06/19/18 0814 Patricia Sandoval. REPORT READ BACK BY SAME . Performed By: #### L205.1000 #### [facility] [address] [place], [address] GROUP B STREP PCR Collected: 06/04/2018 Status: F Source: [place] 11:00 AM [facility] REPOSITORY TYPE CODE TESTS RESULT OUT OF REFERENCE UNITS RANGE LAB GBPCRT Negative for GROUP Group B B STREP PCR Streptococcus by PCR. Performed By: #### GBPCR #### [facility] [address] [place], [place] [address] 100G, 3HR GEST. Collected: 04/16/2018 Status: F Source: [place] OGTT 8:15 AM [facility] REPOSITORY TYPE CODE TESTS RESULT OUT OF REFERENCE UNITS RANGE LAB GTG0 74-94 mg/dL Glucose 75 GST,Fasting Result Comment: [place] [employer] ([place]ode[place]/Coustan) guidelines state gestational diabetes mellitus is present when 2 or more of the plasma glucose concentrations meet or exceed the following levels: fastin mg/dl, 1 hr: 180 mg/dl, 2 hr: 155 mg/dl, and 3 hr: 140 mg/dl. LAB GTG1 74-179 mg/dL Glucose GST, 1 163 Hr Result Comment: [place] [employer] (Thibodeaux/Coustan) guidelines state gestational diabetes mellitus is present when 2 or more of the plasma glucose concentrations meet or exceed the following levels: fastin mg/dl, 1 hr: 180 mg/dl, 2 hr: 155 mg/dl, and 3 hr: 140 mg/dl. LAB GTG2 74-154 mg/dL Glucose GST, 2 144 Hr Result Comment: [place] [employer] (Thibodeaux/Cou[place]) guidelines state gestational diabetes mellitus is present when 2 or more of the plasma glucose concentrations meet or exceed the following levels: fastin mg/dl, 1 hr: 180 mg/dl, 2 hr: 155 mg/dl, and 3 hr: 140 mg/dl. LAB GTG3 74-139 mg/dL High Glucose GST, 3 146 Hr Result Comment: [place] [employer] (Thibodeaux/[place]ou[place]) guidelines state gestational diabetes mellitus is present when 2 or more of the plasma glucose concentrations meet or exceed the following levels: fastin mg/dl, 1 hr: 180 mg/dl, 2 hr: 155 mg/dl, and 3 hr: 140 mg/dl. Performed By: #### GTGST3 #### [facility] [address] [place] [address] 50G, 1HR GEST. Collected: 04/07/2018 Status: F [facility] REPOSITORY TYPE CODE TESTS RESULT OUT OF REFERENCE UNITS RANGE LAB GLUP 74-134 mg/dL High Glucose 136 Screen, Preg Result Comment: [place] [employer] (Thibodeaux/Coustan) guidelines state a gestational diabetes mellitus positive screen is made, in women not previously diagnosed with overt diabetes, when the 1 hr plasma glucose level is equal to or above 140 mg/dL. The [facility] Guest Request Runner and [facility] recommends a 135 mg/dL cutoff. Performed By: #### GLTGST #### [place] [address] ANTIBODY SCREEN Collected: 04/07/2018 Status: F Source: [place] 11:31 AM [facility] REPOSITORY TYPE CODE TESTS RESULT OUT OF REFERENCE UNITS RANGE LAB % Antibody NEG Screen Performed By: #### ASCR #### [place] [address] CBC AND DIFFERENTIAL Collected: 04/07/2018 Status: F Source: [place] 11:31 AM [facility] REPOSITORY TYPE CODE TESTS RESULT OUT OF REFERENCE UNITS RANGE LAB WBC 3.70-11.00 k/uL WBC High 11.81 LAB RBC 3.90-5.20 m/uL RBC Low 3.37 LAB HGB 11.5-15.5 g/dL Hemoglobin Low 10.3 LAB HCT 36.0-46.0 % Hematocrit Low 32.8 LAB MCV 80.0-100.0 fL MCV 97.3 LAB MCH 26.0-34.0 pG MCH 30.6 LAB MCHC 30.5-36.0 g/dL MCHC 31.4 LAB RDWCV 11.5-15.0 % RDW-CV 13.7 LAB PLTCT 150-400 k/uL Platelet Count 222 LAB MPV 9.0-12.7 fL MPV 10.0 LAB ANEUT % Neut% 81.9 LAB AANEUT 1.45-7.50 k/uL Abs Neut High 9.67 LAB ALYMP % Lymph% 11.8 LAB AALYMP 1.00-4.00 k/uL Abs Lymph 1.39 LAB AMONO % [place]% 2.7 LAB AAMONO <0.87 k/uL Abs [place] 0.32 LAB AEOS % Eosin% 2.7 LAB AAEOS <0.46 k/uL Abs Eosin 0.32 LAB ABASO % Baso% 0.0 LAB AABASO <0.11 k/uL Abs Baso 0.00 LAB AMETA % [place]% 0.9 LAB LFTIMI Left Shift Present LAB POLIMI Polychromasia Slight LAB RBCMOR Red Cell Morph SEE COMMENT Result Comment: Unremarkable LAB PLTEST Platelet Platelet Estimate estimate adequate LAB DTYP DTYPE Manual Diff Performed By: #### CBCDIF #### [facility] [address] [place] [id number] PROGRESS Observed: 04/07/2018 Status: COMPLETED Source: [place] 10:11 AM [facility] REPOSITORY HNO ID: [id number] Author: Myles James Service: (none) Author Type: Physician Type: Progress Notes Filed: 04/07/2018 10:14 AM Note Text: A jimenez intrauterine The size is AGA at the 85 th% Estimated Date of Delivery: 06/29/18 EGA = 28w1d The anatomy appears normal in the areas visualized. No debris are noted in the stomach. Breech presentation The amniotic fluid volume is normal. There is no evidence of effusions and/ or hydrops. The placenta is fundal The limitations of ultrasound have been addressed with the patient. Body mass index is 26.97 kg/m?. RECOMMENDATIONS: - Self-assessment of kick counts - She declined echocardiogram - I explained to her the fetus most likely will turn to breech presentation - Follow up ultrasound as clinically indicated PROGRESS Observed: 02/26/2018 Status: COMPLETED Source: [place] 8:49 AM [facility] REPOSITORY HNO ID: [id number] Author: Conchita Serra Service: (none) Author Type: Physician Type: Progress Notes Filed: 02/26/2018 9:10 AM Note Text: x PROGRESS Observed: 02/03/2018 Status: COMPLETED Source: [place] 1:43 PM [facility] REPOSITORY HNO ID: [id number] Author: Myles James Service: (none) Author Type: Physician Type: Progress Notes Filed: 02/03/2018 1:49 PM Note Text: A jimenez? fetus in utero with symmetric measurements Adequate growth (AGA). Estimated Date of Delivery: 06/29/18 EGA = 19w1d The anatomy appears normal. There are no evident malformations and /or effusions. No genetic markers are noted. The amniotic fluid volume is within normal limits. Debris is noted in the stomach: This is a commonly noted finding. In the second and third trimesters, discrete echogenic areas may be seen in the stomach. The increased echogenicity represents swallowed debris (eg, red cells, meconium, skin cells). Poor gastric peristaltic activity early in the second trimester may account for this finding, which resolves over time and is not associated with adverse outcome. The patient was counseled as to the sonographic findings. The limitations of ultrasound in detecting malformations and chromosomal anomalies has been addressed. Body mass index is 23.74 kg/m?. RECOMMENDATIONS: - Follow up ultrasound after 10 weeks to evaluate the growth and stomach. - echocardiogram has been ordered - I offered the family molecular testing of the FOB for [place]outman diease and genetic counseling. The patient and the FOB declined testing SEQUENT SCRN SECOND Collected: 01/19/2018 Status: F Source: [place] [facility] PATIENTS ONLY 3:48 PM [facility] REPOSITORY TYPE CODE TESTS RESULT OUT OF REFERENCE UNITS RANGE LAB SE1PAP MoM 1.66 SE1 CHRISTOPHER A LAB SE2AFP MoM 1.12 SE2 AFP LAB SE2HCG MoM 0.50 SE2 hCG LAB SE2UE3 MoM 1.11 SE2 Unconj uE3 LAB SE2INH MoM 0.74 SE2 Dimrc Inhibin A LAB SE1HCG MoM 0.87 SE1 hCG LAB SE2INT Screen Negative SE2 Interp Screen Negative LAB SE2SDN SE2 Scrn Rsk <1:37321 Dn Synd LAB SE2ADN 1:770 SE2 Age Rsk Dn Snyd LAB SE2STS SE2 Scr Rsk <1:99604 Trsmy 13 LAB SE2STR SE2 Scr Rsk <1:94493 Trsmy18 LAB SE2SON SE2 Scr Rsk 1:6900 ONTD LAB SE2RS View Seq Scrn results in Second Trim Scanned Documents link when available. LAB SEQLRV SEQ Staff Reviewed by Review Patricia Bey, Ph.D. Performed By: #### SEQL2 #### [facility] [address] [place], [place] [address] VAG PATHOGENS DNA Collected: 01/06/2018 Status: F Source: [place] 4:13 PM [facility] REPOSITORY TYPE CODE TESTS RESULT OUT OF RANGE REFERENCE UNITS LAB TVDNA Negative for Trichomonas Negative vaginalis by DNA for Trichomonas Probe Trich vag vaginalis by DNA DNA Probe Probe LAB GVDNA Negative for Gardnerella Positive Abnormal vaginalis by DNA for Gardnerella Alert Probe Diane vag vaginalis by DNA DNA Probe probe. Result Comment: This is suggestive, but not diagnostic of bacterial vaginosis, results should be interpreted in conjunction with other data such as pH, amine odor, clue cells and vaginal discharge characteristics. LAB CANDNA Negative for Reina species Negative by DNA Probe Reina sp DNA for Reina Probe species by DNA Probe Performed By: #### VAGDNA #### [facility] [address] [place], [place] [address] PROGRESS Observed: 01/06/2018 Status: COMPLETED Source: [place] 10:22 AM [facility] REPOSITORY HNO ID: [id number] Author: Tiffany Gibbons Service: (none) Author Type: Physician Bonding Machine Tender Type: Progress Notes Filed: 01/06/2018 12:17 PM Note Text: 01/06/2018 Patient presents with: Rash: x 2 days rash on back SUBJECTIVE: This is a 27 year old that is here today for Complaint(s) of rash x 2 days. Located on upper chest/breast and abdomen, back. Legs are itchy. She tried triamcinolone cream without relief. Denies new products, medications Also notes some vaginal itching and pain with intercourse. No vaginal fluid leakage, bleeding. Currently 15 weeks . PAST MEDICAL HISTORY Diagnosis Date - Bilateral ovarian cysts ALLERGIES Patient has no known allergies. MEDICATIONS Current Outpatient Prescriptions: vitamin D3-folic acid 2,500 unit- 1 mg tab Take by mouth. pyridoxine, vitamin B6, (VITAMIN B-6) 50 mg cap Take by mouth. Bfwdvtxa-Ur-Fzm-Fe-FA ( VITAMIN) tab Take 1 tablet by mouth once daily. No current facility-administered medications for this visit. 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 OBJECTIVE: BP 118/60 Pulse 76 Temp 37.5 ?C (99.5 ?F) Resp 16 Wt 58.4 kg (128 lb 12.8 oz) LMP 08/18/2017 (Approximate) BMI 22.82 kg/m? APPEARANCE Well appearing, alert, in no acute distress, well-hydrated, well nourished. FEMALE Normal external genitalia, normal vagina and normal vaginal tone, normal cervix, normal uterus, size and consistency and normal adnexa without tenderness SKIN Skin color, texture, turgor normal, no suspicious rashes or lesions ASSESSMENT/PLAN: 1. Rash - ICD9: 782.1, ICD10: R21 (primary diagnosis) Allergic vs viral etiology Recommend trial of benadryl/claritin/zyrtec, can also take zantac If not resolving in 24-48 hours, advise f/u. Consider prednisone. 2. Vaginal itching - ICD9: 698.1, ICD10: N89.8 Advise f/u with DEPUTY COMMISSIONER to discussed painful intercourse Reviewed red flags and when to seek care sooner - VAGINAL PATHOGENS DNA PROBES The patient indicates understanding of these issues and agrees with the plan. Tiffany Gibbons PA-C CNOV Observed: 01/06/2018 Status: COMPLETED Source: [place] 10:00 AM [facility] REPOSITORY Office Visit (WSTR) IRA ÁLVAREZ ([id number]) 1990 F Date Time Provider Department 01/06/18 10:00 AM TIFFANY GIBBONS) [facility] During your visit today, we recorded the following information about you: Temperature Pulse Respiration Blood pressure 99.5 degrees 76/minute 16/minute 118/60 Weight 58.4 kg Tiffany Gibbons PA-C 01/06/2018 12:17 PM Signed 01/06/2018 Patient presents with: Rash: x 2 days rash on back SUBJECTIVE: This is a 27 year old that is here today for Complaint(s) of rash x 2 days. Located on upper chest/breast and abdomen, back. Legs are itchy. She tried triamcinolone cream without relief. Denies new products, medications Also notes some vaginal itching and pain with intercourse. No vaginal fluid leakage, bleeding. Currently 15 weeks . PAST MEDICAL HISTORY Diagnosis Date - Bilateral ovarian cysts ALLERGIES Patient has no known allergies. MEDICATIONS Current Outpatient Prescriptions: vitamin D3-folic acid 2,500 unit- 1 mg tab Take by mouth. pyridoxine, vitamin B6, (VITAMIN B-6) 50 mg cap Take by mouth. Mdceodwu-Ov-Slr-Fe-FA ( VITAMIN) tab Take 1 tablet by mouth once daily. No current facility-administered medications for this visit. 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 OBJECTIVE: BP 118/60 Pulse 76 Temp 37.5 ?C (99.5 ?F) Resp 16 Wt 58.4 kg (128 lb 12.8 oz) LMP 08/18/2017 (Approximate) BMI 22.82 kg/m? APPEARANCE Well appearing, alert, in no acute distress, well- hydrated, well nourished. FEMALE Normal external genitalia, normal vagina and normal vaginal tone, normal cervix, normal uterus, size and consistency and normal adnexa without tenderness SKIN Skin color, texture, turgor normal, no suspicious rashes or lesions ASSESSMENT/PLAN: 1. Rash - ICD9: 782.1, ICD10: R21 (primary diagnosis) Allergic vs viral etiology Recommend trial of benadryl/claritin/zyrtec, can also take zantac If not resolving in 24-48 hours, advise f/u. Consider prednisone. 2. Vaginal itching - ICD9: 698.1, ICD10: N89.8 Advise f/u with DEPUTY COMMISSIONER to discussed painful intercourse Reviewed red flags and when to seek care sooner - VAGINAL PATHOGENS DNA PROBES The patient indicates understanding of these issues and agrees with the plan. QUIANA Nelson LPN 01/06/2018 10:39 AM Signed I was present for the physical examination of this patient with the provider.Rachel Fernando LPN Referring Provider: SELF [[id number]] Allergies As of Date: 01/06/2018 (No Known Allergies) Date Reviewed: 12/16/2017 Reviewed by: Jigna Enriquez Ma - Fully Assessed Reason for Visit: Rash [1087] Cmt: x 2 days rash on back Primary Visit Diagnosis:Rash [R21] Other Visit Diagnosis:Vaginal itching [N89.8] Order(s):VAGINAL PATHOGENS DNA PROBES [SQVAGDNA] Order #: [id number] Prescriptions as of 01/06/2018 Sig: VITAMIN D3 2,500 UNIT-FOLIC A* Take by mouth. PYRIDOXINE (VITAMIN B6) 50 MG* Take by mouth. VITAMIN,CALCIUM,MINE* Take 1 tablet by mouth once d* Problem List As Of Date 01/06/2018 Noted Resolved Chest pain [R07.9] INVALID FOR* More... Scoliosis [M41.9] INVALID FOR* More... Encounter for supervision of normal first pregn*INVALID FOR* Irregular menses [N92.6] INVALID FOR* More... Family history of carrier of genetic disease [Z*INVALID FOR* More... Family history of congenital heart defect [Z82.*INVALID FOR* More... OCD (obsessive compulsive disorder) [F42.9] INVALID FOR* More... Visit Notes: >> Rachel Fernando KARL ThuJan 06, 2018 10:39 AM Status: Signed I was present for the physical examination of this patient with the provider.Rachel Fernando LPN Encounter Status:Closed by TIFFANY GIBOBNS PA-C on 01/06/18 TYPE AND IVETTE MCHUGH Collected: 12/16/2017 Status: F Source: [place] 11:25 AM [facility] REPOSITORY TYPE CODE TESTS RESULT OUT OF REFERENCE UNITS RANGE LAB %ABR O ABO/RH(D) NEGATIVE LAB % Antibody NEG Screen Performed By: #### TSPN #### [facility] [address] [place], [place] [address] CBC Collected: 12/16/2017 Status: F Source: [place] 11:25 AM [facility] REPOSITORY TYPE CODE TESTS RESULT OUT OF REFERENCE UNITS RANGE LAB WBC 3.70-11.00 k/uL WBC 10.49 LAB RBC 3.90-5.20 m/uL RBC 4.31 LAB HGB 11.5-15.5 g/dL Hemoglobin 13.2 LAB HCT 36.0-46.0 % Hematocrit 40.4 LAB MCV 80.0-100.0 fL MCV 93.7 LAB MCH 26.0-34.0 pG MCH 30.6 LAB MCHC 30.5-36.0 g/dL MCHC 32.7 LAB RDWCV 11.5-15.0 % RDW-CV 13.3 LAB PLTCT 150-400 k/uL Platelet Count 245 LAB MPV 9.0-12.7 fL MPV 10.0 LAB ABSNUC <0.01 k/uL Absolute nRBC <0.01 Performed By: #### CBC, RUBIGG, SYPHGX, SEQL1, HBSAG, HIV12C #### [facility] [address] [place], [place] [address] RUBELLA IGG ANTIBODY Collected: 12/16/2017 Status: F Source: [place] 11:25 AM [facility] REPOSITORY TYPE CODE TESTS RESULT OUT OF RANGE REFERENCE UNITS LAB RUBGQL Negative Abnormal Rubella IgG Positive Alert Ab, Qual Result Comment: Sample is considered positive for IgG antibodies to rubella virus. A positive result indicates previous exposure to Rubella virus or vaccination. LAB RUBQNT Index Value Rubella IgG Ab 20.20 Result Comment: Index values are interpreted as follows: Negative specimens <0.90 Equivocol specimens 0.90 to 0.99 Positive specimens >0.99 The magnitude of the measured result is not indicative of the amount of antibody present. Performed By: #### CBC, RUBIGG, SYPHGX, SEQL1, HBSAG, HIV12C #### [facility] [address] [place] [id number] SYPHILIS IGG WITH Collected: 12/16/2017 Status: F Source: [facility] 11:25 AM [facility] REPOSITORY TYPE CODE TESTS RESULT OUT OF REFERENCE UNITS RANGE LAB SYPHQL Nonreactive Syphilis IgG, Nonreactive Qual Result Comment: In conjunction with this result, the immune status of the patient should be evaluated based on their clinical status, related risk factors, and other diagnostic test results. LAB SYPHLG AI Syphilis IgG <0.2 Result Comment: Antibody index is interpreted as follows: Non reactive SPECIMENS <=0.8 Weak reactive SPECIMENS 0.9 to 5.9 Reactive SPECIMENS >=6.0 Performed By: #### CBC, RUBIGG, SYPHGX, SEQL1, HBSAG, HIV12C #### [facility] [address] [place] [address] SEQUENT SCRN FIRST Collected: 12/16/2017 Status: F Source: [place] [facility] PATIENTS ONLY 11:25 AM [facility] REPOSITORY TYPE CODE TESTS RESULT OUT OF REFERENCE UNITS RANGE LAB SE1PAP MoM 1.58 SE1 CHRISTOPHER A LAB SE1HCG MoM 0.85 SE1 hCG LAB SE1INT Final result pending second Final trimester SE1 result pending sample Interp second trimester sample LAB SE1SDN SE1 Scrn <1:69185 Rsk Dn Synd LAB SE1ADN 1:570 SE1 Age Rsk Dn Synd LAB SE1STR SE1 Scr <1:57944 Rsk Trsmy18 LAB SE1ATR SE1 Age 1:2100 Rsk Trsmy18 LAB SE1RS View Seq Scrn results in First Trim Scanned Documents link when available. LAB SEQLRV SEQ Staff Reviewed by Review Emmett Menendez MD, PhD ([id number]) Performed By: #### CBC, RUBIGG, SYPHGX, SEQL1, HBSAG, HIV12C #### [place] [id number] [place] [address] HEPATITIS B SURF. AG Collected: 12/16/2017 Status: F Source: [place] 11:25 AM [facility] REPOSITORY TYPE CODE TESTS RESULT OUT OF REFERENCE UNITS RANGE LAB HBSAG Negative Hepatitis B Negative Surf. Ag Performed By: #### CBC, RUBIGG, SYPHGX, SEQL1, HBSAG, HIV12C #### [place] [phone] HIV 12 COMBO (AG/AB) Collected: 12/16/2017 Status: F Source: [place] 11:25 [facility] REPOSITORY TYPE CODE TESTS RESULT OUT OF REFERENCE UNITS RANGE LAB HVAGAB Non Reactive HIV Non Reactive 12 Ag/Ab Result Comment: (NOTE) HIV Information: [place] Rev. Code 3701.243(E): This information has been disclosed to you from confidential records protected from disclosure by state law. You shall make no further disclosure of this information without the specific, written, and informed release of the individual to whom it pertains, or as otherwise permitted by state law. A general authorization for the release of medical or other information is not sufficient for the purpose of the release of HIV test results or diagnoses. Performed By: #### CBC, RUBIGG, SYPHGX, SEQL1, HBSAG, HIV12C #### [place] [phone] CYSTIC FIBROSIS SCR Collected: 12/16/2017 Status: F Source: [place] 11:[address] [place] [address] REPOSITORY TYPE CODE TESTS RESULT OUT OF REFERENCE UNITS RANGE LAB CFNGST CF Hef235 (NOTE) [place] Report Result Comment: Performing Pathologist: Luis Pelayo RESULT: CFTR (RefSeq [id number]): No variant detected INTERPRETATION: The patient does not carry any of the 139 pathogenic genetic variants in the cystic fibrosis transmembrane regulator (CFTR) gene. A negative test result reduces the possibility that this individual is a carrier for cystic fibrosis (CF). However, this test does not detect all variants in the CFTR gene and it is possible that the patient could have a CFTR variant not included in this test. GUIDANCE: Cystic fibrosis (CF) is a multisystem genetic disease of sodium chloride transport that commonly involves the lungs, pancreas, intestines, liver, sweat glands and male reproductive system. CF is one of the most common inherited conditions among Caucasians and is diagnosed in approximately 1 in 3000 individuals in the [place] The condition is less common but occurs in all other racial and ethnic groups. CF has an autosomal recessive inheritance pattern and heterozygous carriers are unaffected. If both partners in a couple have a pathogenic variant, there is a 25% chance for a child to have CF. Genetic test results should be considered in the context of all relevant clinical information including patient phenotype, other laboratory results and family history. Genetic consultation may be beneficial for this individual and the family. Carrier Frequencies: : 1 in 28 Ashkenazi Faith: 1 in 29 : 1 in 59 : 1 in 70 : 1 in 84 : 1 in 91 : 1 in 242 METHOD: The Solid SoundDx Cystic Fibrosis 139-Variant Assay is a qualitative in vitro diagnostic system used to simultaneously detect 139 clinically relevant cystic fibrosis disease-causing mutations and variants of the cystic fibrosis transmembrane conductance regulator (CFTR) gene in genomic DNA isolated from human peripheral whole blood. The variants reported by the MiSeqDx Cystic Fibrosis 139-Variant Assay were specifically chosen because they represent the full set of clinically validated variants classified as CF- causing in the CFTR2 database at [facility], a product of the CFTR2 (Clinical and Functional Translation of CFTR) initiative. Briefly, multiplex short oligonucleotide primers are designed to hybridize to the genomic DNA regions of interests. Followed by primer extension and ligation, the ligation products are multiplex PCR amplified using primers that add index sequences for sample multiplexing, as well as common adapters required for cluster generation and sequencing on the MiSeqDx instrument. The Mi[employer] Supervisor processes base calls generated during primary analysis. Secondary analysis includes demultiplexing, FASTQ file generation, alignment, variant calling, and generation of variant-calling files (VCFs) containing information about CFTR variants found at specific positions in the reference genome. LIMITATIONS: The results should be used and interpreted in the context of a full clinical evaluation. The assay does not include all variants identified in the CFTR gene. Therefore, the failure to identify a variant does not guarantee that other CFTR variants are not present in the samples being analyzed. Variants identified by this assay vary in frequency among different populations. As with any hybridization-based assay, underlying variants in oligonucleotide-binding regions can affect the alleles being probed and, consequently, the calls made. The orientation of the PolyTG/PolyT variant, whether in cis/trans to the R117H variant, cannot be ascertained. PolyTG/PolyT are homopolymeric regions known to be difficult to interpret with sequence-based assays due to polymerase slippage. A 0.9% (4/448) miscall rate is reported for PolyTG/PolyT results. REFERENCES: [place] [employer] Committee on Genetics. ACOG committee opinion No. 486: Update on Carrier Screening for Cystic Fibrosis. Obstet Gynecol. 2011;117(4):1744-7283. Remigio JL, Rudi Velasquez M, Alexei MESHA, Mathew PM. Cystic Fibrosis: A worldwide analysis of CFTR mutations-correlation with incidence data and application to screening. 2002. Hum Mutat 19:575-606. Giovana FOWLER. Cystic fibrosis genetics: from molecular understanding to clinical application. Tea Rev Vanita. 2015;16(1):45-56. Mathew PM, Luis Daniel BJ, Oumar TB, Tyra FJ, Miki C, Giovana FOWLER, Analia DE, Florecita VA, Ford J, Connie RB, Rock AGUIRRE, Skyler, III, PW. Guidelines for diagnosis of cystic fibrosis in newborns through older adults: Cystic Fibrosis Foundation consensus report. JPediatr. 2008;153:S4-S14. Sherri WW, Giovana FOWLER, Destiny KW, Tony CS, Bry MS, Clinton RJ. Laboratory standards and guidelines for population-based cystic fibrosis carrier screening. Vanita Med 2001;3:149-54. Stepan SM, Ha JF, Rebekah DL, Refugio E, Giovana FOWLER. CFTR-related disorders. Wei RA, Jules TC, Robert CR, Jaclyn Navas, editors. [place]. [place] ([place]): [facility]; 2008. Available at www.ncbi.nlm.nih.gov/books/IOO0056. [Online] Updated Jul 20, 2007. Online Mendelian Inheritance in Man, OMIM. [facility], [place], [place]. Cystic fibrosis transmembrane conductance regulator; CFTR. SALEEM Number: *[id number]: 02/28/2014: World Wide Web URL: http://omim.org/ The Clinical and Functional Translation of CFTR (CFTR2). Available at http://www.cftr2.org/ [Online] Bry MS, Giovana GR, Clinton RJ, Audrey MARTINEZ, Destiny K, Maryjane M, Celia GE, Cruz BW, Marquez VM, Wes EM, Loan CM, Tony CS, Angeles DR, Sherri WW. Cystic fibrosis population carrier screenin revision of [place] [employer] mutation panel. Vanita Med. 2004;6:387-91. Performed By: #### CFNGS #### [facility] [address] [place] [address] PROGRESS Observed: 12/16/2017 Status: COMPLETED Source: [place] 10:[address] [facility] REPOSITORY HNO ID: [id number] Author: Myles James Service: (none) Author Type: Physician Type: Progress Notes Filed: 12/16/2017 11:21 AM Note Text: E and M note: Ira Álvarez is a pleasant, 27 year old female, , currently with an Estimated Date of Delivery: 06/29/18, which places her at 12w1d. The reasons for consultation are: First trimester screening Family history of congenital heart disease Family history of [place] disease I reviewed the patient's history: PAST MEDICAL HISTORY Diagnosis Date - Bilateral ovarian cysts PAST SURGICAL HISTORY Procedure Laterality Date - NASAL SURGERY PROCEDURE 08/2016 - TONSILLECTOMY HX 8 yrs old .Obstetric History T0 L0 SAB0 TAB0 Ectopic0 Multiple0 Live Births0 Current Outpatient Prescriptions on File Prior to Visit: Qchfeyjf-Qi-Aam-Fe-FA ( VITAMIN) tab Take 1 tablet by mouth once daily. No current facility-administered medications on file prior to visit. SOCIAL HISTORY: Patient is . She has never smoked. Ira reports her alcohol use as never. FAMILY HISTORY Problem Relation Age of Onset - Cancer Mother precancer cells on cervix - Heart Father mitrial valve prolapse - COPD Father - Coronary Artery Disease Father - Heart Maternal Grandfather - muscular [OTHER] Maternal Grandfather mysthenia gravis - Cancer Maternal Grandmother abnormal paps - Diabetes Maternal Grandmother - COPD Paternal Grandmother - Cancer Paternal Grandmother bone - Cancer Maternal Aunt abnormal paps - Breast Cancer Other maternal great grandmother - Cancer Maternal Aunt skin - short gut syndrome [OTHER] Brother - chrones [OTHER] Brother Genetic history Positive for Rosa disease and CHD Negative for aneuploidy, genetic syndromes, inheritable disorders, and/or inborn errors of metabolism Ultrasound evaluation: A single intrauterine gestational sac is noted with a regular outline. There is no decidual hemorrhage. The yolk sac is visualized and shows normal shape and echogenicity. A living single fetus is noted. The heart rate is within normal range. The CRL corresponds to the gestational age. Estimated Date of Delivery: 06/29/18 EGA = 12w1d Negative NT screen for Trisomy 21. The sensitivity of nuchal translucency measurement for Trisomy 21 is ~60%. The anatomy appears normal in the areas visualized. The limitations of ultrasound have been discussed. Counseling: Discussion regarding screening for aneuploidy: - The patient age related risk of aneuploidy has been discussed. For a woman who will be 27 year old at the time of delivery. The risk of trisomy 21 (Down syndrome) is 1:784 The risk of trisomy 18 (Edward syndrome) is 1:3054 -The patient was counseled about the detection of aneuploidy utilizing both screening and diagnostic tests. She was counseled about nuchal translucency, first trimester combined screen, first and second trimester Integrated screen, the sequential screen, the Quad screen, the ultrasound examination performed between 16-18 weeks gestation, and the invasive tests including chorionic villus sampling and amniocentesis. I explained to her the difference between a screening test and a diagnostic test. I advised the patient that the integrated screen and the sequential tests are sensitive noninvasive screening tests for Down syndrome. The sensitivity for detection of Down syndrome is approximately 92%. The sensitivity for detection of Trisomy-18 is approximately 90%. The sensitivity for detection of open neural tube defects is approximately 80%. The false positive rate is 4%. The patient decided to have the sequential the test. Family history of CHD: The patient's father has CHD. She does not know the type of the lesion. The FOB has bicuspid aortic valve. The baby's risk for CHD is increased. The NT measurers in the normal range which is reassuring since thick NT is predictive of CHD. I will evaluate the cardiac anatomy at 18 weeks and will order a echocardiogram. Family history of Troutman Disease: The FOB maternal grandmother and maternal aunt have HD. His mother is in her sixties and is asymptomatic. She never been tested. I offered him genetic molecular testing and having genetic counseling with one of our counselors. They declined genetic testing. RECOMMENDATIONS: - The patient requested the sequential screening. The test has been ordered - Ultrasound examination at 18 to 20 weeks - echocardiogram at 20 weeks - I offered the family molecular testing of the FOB for Troutman diease and genetic counseling. The patient and the FOB declined In addition to the time spent performing today's procedure and discussing risk and benefits of the procedure, I evaluated the patient and spent an additional 15 minutes counseling the patient re: testing and management options and answering her questions. My findings and recommendations will be shared via electronic record or fax/mail. ANDREWS Observed: 12/16/2017 Status: COMPLETED Source: [place] 9:00 AM [facility] REPOSITORY Office Visit (WOOB) IRA ÁLVAREZ ([id number]) 1990 F Date Time Provider Department 12/16/17 9:00 AM MYLES JAMES WOWALLACE During your visit today, we recorded the following information about you: Weight Height 58.6 kg 1.6 m Diane Naqvi RN 12/16/2017 9:04 AM Addendum SEQUENTIAL TESTING PROCESS Sequential Screen First Trimester Today you are currently: 12w1d weeks 12/16/2017: Ultrasound and blood test. Sequential Screen Second Trimester (16-17 Weeks Gestation) When you are called with your results, the nurse will give the optimal draw dates for the Sequential screen second trimester. Blood testing can be done at any [facility] lab. Please report to the any group supervisor yard office hotel front office manager for the Sequential Part 2 requisition and order before reporting to the lab. Your weight will need to be documented for testing. Please note: -No appointment is need for your second blood draw. -Office hours are 8 am to 4:30 pm. -Please have testing done prior to 12 noon on Thursday's -Once the sequential testing is started, in the first trimester the only follow-up will be for the sequential screen second trimester. Please don't have a Quad screen ordered by another provider. If you or your Provider have any questions please call your maternal medicine office, for east side please call [phone] or for the West side call [phone] and ask for the the nurse. Thank you. For a woman who will be 27 year old at the time of delivery. The risk of trisomy 21 (Down syndrome) is 1:784 The risk of trisomy 18 (Edward syndrome) is 1:3054 Myles James MD 12/16/2017 11:21 AM Signed E and M note: Ira Álvarez is a pleasant, 27 year old female, , currently with an Estimated Date of Delivery: 06/29/18, which places her at 12w1d. The reasons for consultation are: First trimester screening Family history of congenital heart disease Family history of [place] disease I reviewed the patient's history: PAST MEDICAL HISTORY Diagnosis Date - Bilateral ovarian cysts PAST SURGICAL HISTORY Procedure Laterality Date - NASAL SURGERY PROCEDURE 08/2016 - TONSILLECTOMY HX 8 yrs old .Obstetric History T0 L0 SAB0 TAB0 Ectopic0 Multiple0 Live Births0 Current Outpatient Prescriptions on File Prior to Visit: Vpmfwteq-Jo-Ylj-Fe-FA ( VITAMIN) tab Take 1 tablet by mouth once daily. No current facility-administered medications on file prior to visit. SOCIAL HISTORY: Patient is . She has never smoked. Ira reports her alcohol use as never. FAMILY HISTORY Problem Relation Age of Onset - Cancer Mother precancer cells on cervix - Heart Father mitrial valve prolapse - COPD Father - Coronary Artery Disease Father - Heart Maternal Grandfather - muscular [OTHER] Maternal Grandfather mysthenia gravis - Cancer Maternal Grandmother abnormal paps - Diabetes Maternal Grandmother - COPD Paternal Grandmother - Cancer Paternal Grandmother bone - Cancer Maternal Aunt abnormal paps - Breast Cancer Other maternal great grandmother - Cancer Maternal Aunt skin - short gut syndrome [OTHER] Brother - chrones [OTHER] Brother Genetic history Positive for Troutman disease and CHD Negative for aneuploidy, genetic syndromes, inheritable disorders, and/or inborn errors of metabolism Ultrasound evaluation: A single intrauterine gestational sac is noted with a regular outline. There is no decidual hemorrhage. The yolk sac is visualized and shows normal shape and echogenicity. A living single fetus is noted. The heart rate is within normal range. The CRL corresponds to the gestational age. Estimated Date of Delivery: 06/29/18 EGA = 12w1d Negative NT screen for Trisomy 21. The sensitivity of nuchal translucency measurement for Trisomy 21 is ~60%. The anatomy appears normal in the areas visualized. The limitations of ultrasound have been discussed. Counseling: Discussion regarding screening for aneuploidy: - The patient age related risk of aneuploidy has been discussed. For a woman who will be 27 year old at the time of delivery. The risk of trisomy 21 (Down syndrome) is 1:784 The risk of trisomy 18 (Edward syndrome) is 1:3054 -The patient was counseled about the detection of aneuploidy utilizing both screening and diagnostic tests. She was counseled about nuchal translucency, first trimester combined screen, first and second trimester Integrated screen, the sequential screen, the Quad screen, the ultrasound examination performed between 16-18 weeks gestation, and the invasive tests including chorionic villus sampling and amniocentesis. I explained to her the difference between a screening test and a diagnostic test. I advised the patient that the integrated screen and the sequential tests are sensitive noninvasive screening tests for Down syndrome. The sensitivity for detection of Down syndrome is approximately 92%. The sensitivity for detection of Trisomy-18 is approximately 90%. The sensitivity for detection of open neural tube defects is approximately 80%. The false positive rate is 4%. The patient decided to have the sequential the test. Family history of CHD: The patient's father has CHD. She does not know the type of the lesion. The FOB has bicuspid aortic valve. The baby's risk for CHD is increased. The NT measurers in the normal range which is reassuring since thick NT is predictive of CHD. I will evaluate the cardiac anatomy at 18 weeks and will order a echocardiogram. Family history of Rosa Disease: The FOB maternal grandmother and maternal aunt have HD. His mother is in her sixties and is asymptomatic. She never been tested. I offered him genetic molecular testing and having genetic counseling with one of our counselors. They declined genetic testing. RECOMMENDATIONS: - The patient requested the sequential screening. The test has been ordered - Ultrasound examination at 18 to 20 weeks - echocardiogram at 20 weeks - I offered the family molecular testing of the FOB for Troutman diease and genetic counseling. The patient and the FOB declined In addition to the time spent performing today's procedure and discussing risk and benefits of the procedure, I evaluated the patient and spent an additional 15 minutes counseling the patient re: testing and management options and answering her questions. My findings and recommendations will be shared via electronic record or fax/mail. Referring Provider: IRA PAINTING ([facility]) [[id number]] Allergies As of Date: 12/16/2017 (No Known Allergies) Date Reviewed: 12/16/2017 Reviewed by: Jigna Enriquez Ma - Fully Assessed Primary Visit Diagnosis:12 weeks gestation of [Z3A.12] Other Visit Diagnoses:Encounter for screening for nuchal translucency [Z36.82] Encounter for screening of mother [Z36.9] Family history of carrier of genetic disease [Z84.81] Family history of congenital heart defect [Z82.79] Encounter for anatomic survey [Z36.89] Order(s):SEQUENTIAL SCRN FRST TRIMESTER [SQSEQL1] Order #: [id number] FUTURE SEQUENTIAL SCRN SCND TRIMESTER [SQSEQL2] Order #: [id number] FUTURE OBSTETRIC ULTRASOUND WHI [0749088] Order #: [id number]: 1 Prescriptions as of 12/16/2017 Sig: VITAMIN,CALCIUM,MINE* Take 1 tablet by mouth once d* Problem List As Of Date 12/16/2017 Noted Resolved Chest pain [R07.9] INVALID FOR* More... Scoliosis [M41.9] INVALID FOR* More... Encounter for supervision of normal first pregn*INVALID FOR* Irregular menses [N92.6] INVALID FOR* More... Family history of carrier of genetic disease [Z*INVALID FOR* More... Family history of congenital heart defect [Z82.*INVALID FOR* More... OCD (obsessive compulsive disorder) [F42.9] INVALID FOR* More... Other instructions from your clinician: SEQUENTIAL TESTING PROCESS Sequential Screen First Trimester Today you are currently: 12w1d weeks 12/16/2017: Ultrasound and blood test. Sequential Screen Second Trimester (16-17 Weeks Gestation) When you are called with your results, the nurse will give the optimal draw dates for the Sequential screen second trimester. Blood testing can be done at any [facility] lab. Please report to the any group supervisor yard office hotel front office manager for the Sequential Part 2 requisition and order before reporting to the lab. Your weight will need to be documented for testing. Please note: -No appointment is need for your second blood draw. -Office hours are 8 am to 4:30 pm. -Please have testing done prior to 12 noon on Thursday's -Once the sequential testing is started, in the first trimester the only follow-up will be for the sequential screen second trimester. Please don't have a Quad screen ordered by another provider. If you or your Provider have any questions please call your maternal medicine office, for east side please call [phone] or for the West side call [phone] and ask for the the nurse. Thank you. For a woman who will be 27 year old at the time of delivery. The risk of trisomy 21 (Down syndrome) is 1:784 The risk of trisomy 18 (Edward syndrome) is 1:3054 Disposition: Return in about 6 weeks (around 01/27/2018) for [place] . Follow-up and Disposition History Recorded Encounter Status:Closed by MYLES JAMES MD on 12/16/17 TOXICOLOGY SCREEN,UR Collected: 11/10/2017 Status: F Source: [place] 12:[address] [facility] REPOSITORY TYPE CODE TESTS RESULT OUT OF REFERENCE UNITS RANGE LAB UPCP2 Negative Negative Phencyclidin e, Urine Result Comment: Cutoff threshold at 25 ng/mL. LAB UBENZ2 Negative Benzodiazepines, Ur Negative Result Comment: Cutoff threshold at 200 ng/mL. LAB UCOC2 Negative Cocaine, Negative Urine Result Comment: Cutoff threshold at 300 ng/mL. LAB UAMPH2 Negative Amphetamines, Urine Negative Result Comment: Cutoff threshold at 1000 ng/mL. LAB UTHC2 Negative Cannabinoids, Urine Negative Result Comment: Cutoff threshold at 50 ng/mL. LAB UOPI2 Negative Opiates, Negative Urine Result Comment: Cutoff threshold at 300 ng/mL. LAB UBARB2 Negative Barbiturates, Urine Negative Result Comment: Cutoff threshold at 200 ng/mL. LAB UETOH <11 mg/dL <11 Ethanol, Urine LAB UOXYC Negative Oxycodone, Negative Urine Result Comment: Cutoff threshold at 100 ng/mL. Comment: Immunoassay screen only. Cross reactivity with other substances can occur with immunoassay screening. Detection of any drug(s) in this urine toxicology panel is presumptive only. These tests are for med ical purposes only and should not be used for compliance monitoring, legal, or forensic use. Samples should be within normal physiological conditions (e.g. pH). This assay does not include adulteration/specimen validity testing. In clinical settings, confirmatory testing is at the practitioner's discretion [1]. If clinically indicated, confirmation by high specificity, quantitative methodology, which includes adulteration/spec imen validity testing, may be requested on the same specimen through Client Services ([phone]) if contacted within 48 hours of initial testing. [1]Substance Abuse and Mental Health Services Administration (2012). Clinical Drug Testing in Primary Care Technical Assistance Publication Series 32. Department of Health and Human Services, [place], p.10. These tests were developed and their performance characteristics determined by [facility]'s [facility] [place] ( [facility]). They have not been cleared or a pproved by the FDA. [facility] is regulated under CLIA as qualified to perform high complexity testing. These tests are used for clinical purposes. They should not be regarded as investigational or for research. Performed By: #### UTOX2 #### [id number] [place], [place] [address] Observed: 11/10/2017 Status: F Source: [place] URINE CULTURE 12:00 PM [facility] REPOSITORY Sp. Request/Comment: - Specimen received in preservative Culture Result - <10,000 CFU/ml Gram negative bacilli --> ABNORMAL ALERT Insignificant colony count. No further workup. --> ABNORMAL ALERT <10,000 CFU/ml Normal urogenital vidhi Performed By: #### URCUL #### [id number] [place], [place] [address] GC/CHLAMYDIA AMPLIF Collected: 11/10/2017 Status: F Source: [place] 10:04 AM [facility] REPOSITORY TYPE CODE TESTS RESULT OUT OF REFERENCE UNITS RANGE LAB GCCTSR GC/Chlam Amp Cervix Source LAB GCAMPL GC Negative Amplification for Neisseria gonorrhoeae by amplification. LAB CLAMPL Chlamydia Negative Amplif for Chlamydia trachomatis by amplification. Performed By: #### GCCT #### [facility] [address] [place], [place] [address] PROGRESS Observed: 11/10/2017 Status: COMPLETED Source: [place] 9:[address] [facility] REPOSITORY HNO ID: [id number] Author: Ira Paniting Service: (none) Author Type: Intelligence Director Type: Progress Notes Filed: 12/16/2017 10:08 AM Note Text: Academic Interventionist offered: Patient declines. INITIAL OB ASSESSMENT OB Provider: Ira Painting CNM HPI: Ira Álvarez is a 27 year old female here to establish Obstetrical Care. Patient's last menstrual period was 08/18/2017 (approximate). from OB Dating Form. LMP approximately 08/18/17. Cycles are irregular 21-60 days, bleeding lasts 3-12 days. Complaints: Had light pink spotting 5 days ago, no recent intercourse as cause, no vaginal bleeding or clots. Had groin pain bilaterally, sharp, stabbing, intermittently, started 5 days ago as well. was unplanned but accepted. Obstetric History T0 L0 SAB0 TAB0 Ectopic0 Multiple0 Live Births0 Prior : never History of 4th degree laceration: No Patient's Risk Screening for delivery: Have you had a prior jimenez between 20w and 36w6d?: No History of abnormal pap: No Prior treatment for cervical dysplasia: none. 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 No Marital Status: Partner: Name: Carlos Álvarez Age: 34 Occupation: [employer] Gender: male History of STDs: None PAST MEDICAL HISTORY Diagnosis Date - Bilateral ovarian cysts PAST SURGICAL HISTORY Procedure Laterality Date - NASAL SURGERY PROCEDURE 08/2016 - TONSILLECTOMY HX 8 yrs old Current Outpatient Prescriptions on File Prior to Visit: Byemhhth-Yu-Vxc-Fe-FA ( VITAMIN) tab Take 1 tablet by mouth once daily. No current facility-administered medications on file prior to visit. Review of Systems: GENERAL: Negative for: Fever or Chills. HEENT: Negative for: Headache, Impaired Vision, Ringing in Ears, Nosebleeds NECK: Negative for: Swelling, Pain, Stiffness RESPIRATORY: Negative for: Cough, Wheezing. Having some SOB at times, taking deep breaths and improves. GASTROINTESTINAL: Negative for: Heartburn,Diarrhea, Blood in stool, Vomiting. Constipation MUSCULOSKELETAL: Negative for: Muscle or joint pain, stiffness, Joint swelling NEUROLOGIC/PSYCHIATRIC: Negative for: Weakness, Paralysis, Numbness, Tingling, Tremor, Depression, Memory loss. History of anxiety, does not take anything, seeing Brielle Morin for counseling once a month. SKIN: Negative for: Rash, Itching GENITOURINARY: Negative for: vaginal itching, vaginal discharge, hematuria or dysuria PHYSICAL EXAM: BP 102/66 Ht 5' 3.2 (1.61m) Wt 125 lb 12.8 oz (57.1kg) LMP 08/18/2017 BMI 22.15 kg/(m2). GENERAL: pleasant female in no apparent distress DERMATOLOGY: Normal, without lesions, non-icteric and non-hirsute NECK: Supple, full range of motion, no adenopathy and thyroid normal CHEST: Clear to auscultation Normal inspiratory effort Regular rate and rhythm No murmurs, clicks, rubs or gallops BREAST: soft, non-tender, symmetric, no dominant mass, normal nipple-areolar complex, no lymphadenopathy and no nipple discharge ABDOMEN: soft, non-tender and no masses NEURO: alert and oriented x3,exam grossly non-focal PELVIS: External genitalia normal without lesions. Perineal body intact. No vaginal or cervical lesions. Cervix closed. Uterus 8 week size. No adnexal masses or tenderness. Cervix anterior and uterus retroverted Clinical Pelvimetry: Pelvimetry clinically assessed as adequate Limited OB ultrasound exam: single intrauterine , positive cardiac activity and crown-rump length 7w0d. consulted for U/S. ANCA: 06/29/17 ASSESSMENT: 27 year old at 7 wks gestational age PLAN: 1) Patient oriented to practice. Discussed nutrition, folic acid supplementation, dietary guidelines, exercise, smoking, alcohol, caffeine, and drug use. Discussed routine OB labs including STD/HIV. Discussed aneuploidy screening options including serum screening and nuchal translucency. CF carrier screening discussed and unsure at this time. 2) Discussed with patient FOB family history of MGM and MA with Troutman's Disease. FOB and Father with Bicuspid/Aortic Valve congential heart defect. Will have patient meet with at U/S to further discuss with patient and FOB. 3) Discussed with patient currently 7w and changed to ANCA:06/29/17 and LMP inconsistent with U/S. Will follow up dating at U/S. 4) Patient taking OTC PNV, discussed adding DHA. To start Vitamin D 2,000 IU PO once daily. 5) Recommend starting Vitamin B6 and Unisom for N/V. Discussed natural relief measures. 6) Patient requested delivery at [facility], discussed our privileges are at [facility]. Voiced understanding. Follow up in 5 weeks or sooner prn. Ira Painting APRN.SOPHIA SBIRT Ira Álvarez was given the 's screening tool. Ira answered as follows: OB Opioid Screening - Last Recorded (since 03/21/2017) Did any of your parents have a problem with alcohol or other drug use? (!) Yes Does your partner have a problem with alcohol or other drug use? No In the past, have you had difficulties in your life because of alcohol or other drugs, including prescription medications? No In the past month have you drunk any alcohol or used other drugs? No Are you taking medication for pain during the either prescribed or not? No Based on the screen and further questions, she is considered at Low risk due to:No past or current use. Positive reinforcement of current behavior. Plan to rescreen early third trimester. Ira Painting APRN.CNM ALLERGIES ALLERGIES DATE TYPE / CODE NAME / CODE REACTION SEVERITY SOURCE 06/19/2018 Drug No Known Unknown [facility]/416 Allergies/N18476 [facility] 231355(SNOM 0388(RXNORM) Repository ED CT) Drug NO KNOWN [facility] Class/53630 ALLERGIES [facility] [place] 1003(SNOMED Repository CT) ENCOUNTERS ENCOUNTERS ADMIT/DISCHARGE ACCOUNT NUMBER ADMITTING ENCOUNTER LOCATION SOURCE CLASS 06/23/2018/06/23/19 [id number] Ambulatory BBuilding:AYDIN Forbes [address] [place] [address] Repository 06/19/2018/06/21/19 [id number] [facility] Jose Juan [place] [address] [facility] ding:WPRoom: Repository [id number]: 1 06/16/2018/06/17/19 [id number] [facility] [place] Repository 06/11/2018/06/14/19 [id number] [facility] [place] Repository 06/04/2018/06/08/19 [id number] [facility] [place] Repository 05/21/2018/05/28/20 [id number] [facility] [place] Repository 05/07/2018/05/10/20 [id number] [facility] [place] Repository 04/20/2018/04/21/20 [id number] [facility] [place] Repository 04/16/2018/04/16/20 [id number] [facility] [place] Repository 04/07/2018/04/07/20 [id number] [facility] [place] Repository 04/07/2018/04/08/20 [id number] [facility] [place] Repository 04/07/2018/04/08/20 [id number] [facility] [place] Repository 03/29/2018/03/30/20 [id number] [facility] [place] Repository 02/26/2018/03/01/20 [id number] [facility] [place] Repository 02/09/[id number] [facility] ding:NS Repository 02/03/2018/02/06/20 [id number] [facility] [place] Repository 01/26/2018/01/30/20 [id number] Ambulatory [place] [address] ding:NS Repository 01/19/2018/01/20/20 [id number] [facility] [place] Repository 01/19/2018/01/22/20 [id number] [facility] [place] Repository 01/06/2018/01/08/20 [id number] [facility] [place] Repository 12/16/2017/12/17/19 [id number] Ambulatory [address] Repository 12/16/2017/12/22/19 [id number] Ambulatory [address] Repository 12/16/2017/12/22/19 [id number] Ambulatory [address] Repository 11/10/2017/11/13/19 [id number] Ambulatory [address] Repository PAYERS PAYERS ENCOUNTER GUARANTOR PAYER SUBSCRIBER SOURCE 06/23/2018 IRA Whitney Primary IRA Whitney [facility] ROBINSONDOB: Insurance:MEDICAL ROBINSONDOB: [facility] [id number] [facility] [id number] [place] [address] Number: 1 [place], [place] [id number] [place], [place] [address]Ejg: ([phone]) Date:2018-06-23 [id number]: () [id number] [phone] Name:LOCOMOTIVE OPERATOR BOX ()Tel: [phone]) [phone], [place] [phone] () [phone]: 06/19/2018 IRA CHAHAL Primary IRA FELA [id number] Insurance:MEDICAL ROBINSONDOB: [facility] [id number] Number: Repository [id number]: 330 [id number] [phone] (HP) Date:4112-56-46FT [address] [place] [phone]: 06/19/2018 Secondary NOT GIVENUNK Jose Juan Insurance:SELF PAY [facility] Number: Effective Repository Date:2018-06-19 02/09/2018 IRA CHAHAL Primary IRA FELA [id number] Insurance:MEDICAL ROBINSONDOB: [facility] [id number], Number: Repository [place] [id number]: [id number] Date:[id number] BOX () [address] [place] [phone]: 02/09/2018 Secondary NOT GIVENUNK Jose Juan Insurance:SELF PAY [facility] Number: Effective Repository Date:2018-01-30 01/26/2018 IRA CHAHAL Primary IRA Manzano [id number] Insurance:MEDICAL ROBINSONDOB: [facility] [id number], Number: Repository [place] [id number]: [id number] Date:3584-07-38ML [address]OX (II) [address], [place] [address]NG: 01/26/2018 Secondary NOT GIVENUNK Jose Juan Insurance:SELF PAY [facility] Number: Effective Repository Date:2018-01-25
== END 2018-06-21 17:40 | disposition home or self-care (01) | DRG 807 ==
LOC: WPOUT 08:23
PROVIDERS: Advanced Practice Midwife; Admitting Provider Obstetrics & Gynecology; Family Provider Internal Medicine; PCP Internal Medicine; Referring Provider Obstetrics & Gynecology; Visit Provider Obstetrics & Gynecology
DX: O42.02 Full-term premature rupture of membranes, onset of labor within 24 hours of rupture (principal); O66.0 Obstructed labor due to shoulder dystocia; O70.0 First degree perineal laceration during delivery; Z3A.38 38 weeks gestation of pregnancy; Z37.0 Single live birth
CPT/HCPCS: 59025; 59050; 84112; 85027; 85461; 86850; 86900; 90384; 99218; J7120; G0378; J2790

== ENCOUNTER → 2020-03-21 13:08 | Outpatient (CLI) | payer OTHER, SELFPAY ==
--- NOTE | 2020-03-21 13:14 | RAD_ITS ---
STUDY: X-RAY CHEST REASON FOR EXAM: Female, 29 years old. cough, sob TECHNIQUE: PA and lateral views of the chest. COMPARISON: None. FINDINGS: The lungs are clear and expanded. There is no demonstrated pleural abnormality. Normal size heart. Normal mediastinum and florentino. Normal visualized pulmonary arteries. Normal visualized aortic arch and descending thoracic aorta. Normal visualized thoracic spine. Normal visualized ribs, clavicles, and shoulders. There is no demonstrated abnormality of the visualized soft tissue structures of the upper abdomen. RAD/Chest PA and Lateral IMPRESSION: Normal x-ray examination of the chest. Electronically Signed: Jovany Jeff MD at 17:07 EDT Tel , Service support ,
== END ==
PROVIDERS: PCP Internal Medicine; Referring Provider Internal Medicine; Visit Provider Internal Medicine
DX: R05 Cough (principal)
CPT/HCPCS: 71046

== ENCOUNTER → 2020-08-16 13:59 | Outpatient (CLI) | payer OTHER, SELFPAY ==
--- NOTE | 2020-08-16 14:01 | ART_ITS ---
Reason For Study: Pain in bilateral lower extremities Procedure A bilateral lower extremity continuous wave Doppler with analog waveform analysis,segmental pressures,and ankle brachial indexes with exercise. Left Segmental Pressures Left brachial= 122mmHg. Left posterior tibial artery = 131mmHg. Left dorsalis pedis artery = 130mmHg. The left dorsalis pedis waveforms are triphasic. The left posterior tibial artery waveforms are triphasic. Right Segmental Pressures Right brachial= 123mmHg. Right posterior tibial artery = 149mmHg. Right dorsalis pedis artery = 127mmHg. The right dorsalis pedis waveforms are triphasic. The right posterior tibial artery waveforms are triphasic. Indices The right ankle brachial index by the dorsalis pedis is 1.03. The right ankle brachial index by the posterior tibial artery is 1.21. The right post exercise ankle brachial index is 1.27. The left ankle brachial index by the dorsalis pedis is 1.06. The left ankle brachial index by the posterior tibial artery is 1.07. The left post exercise ankle brachial index is 1.18. Interpretation Summary Normal bilateral lower extremity ankle-brachial indices with normal triphasic bilateral posterior tibial and dorsalis pedis waveforms at rest. Normal bilateral extremity ankle-brachial index response with exercise with the right JONATHAN going from a resting 1.21 to immediately after exercise at 1.27 and the left at rest 1.07 to after exercise at 1.18 Ordering Physician: Francisca Marshall Referring Physician: Francisca Marshall Performed By: Liza Shukla RVT
== END ==
PROVIDERS: PCP Internal Medicine; Referring Provider Internal Medicine; Visit Provider Internal Medicine
DX: M79.604 Pain in right leg (principal); M79.605 Pain in left leg
CPT/HCPCS: 93922

== ENCOUNTER → 2020-08-20 06:54 | Outpatient (CLI) | payer OTHER, SELFPAY ==
--- NOTE | 2020-08-21 09:28 | PFT ---
INTRODUCTION: The patient is a 30-year-old female that presents for pulmonary function studies secondary to a diagnosis of shortness of breath. Respiratory therapy reports good patient effort. Bronchodilators were used during testing. INTERPRETATION: Forced expiration spirometry demonstrates no evidence of a large airways obstructive ventilatory defect. There was no significant response to aerosolized bronchodilators. Spirograms are of good quality and plateau normally. The respiratory flow volume loop is normal. Body plethysmography was performed and reveals lung volumes to be within normal limits. Diffusing capacity by single breath CO is also within normal limits. IMPRESSION: Grossly normal pulmonary function studies.
== END ==
PROVIDERS: PCP Internal Medicine; Referring Provider Internal Medicine; Visit Provider Internal Medicine
DX: R06.02 Shortness of breath (principal)
CPT/HCPCS: 94060; 94726; 94729

== ENCOUNTER → 2020-09-13 09:53 | Outpatient (CLI) | payer OTHER, SELFPAY ==
--- NOTE | 2020-09-13 09:56 | US_ITS ---
STUDY: ABDOMINAL ULTRASOUND - RIGHT UPPER QUADRANT REASON FOR VISIT: Female, 30 years old NAUSEA TECHNIQUE: Ultrasound evaluation of the right upper quadrant was performed with real-time and static lizarraga-scale imaging. TECHNICAL QUALITY: Adequate. COMPARISON: Comparison is made with prior study done 03/19/2012. FINDINGS: Liver: The liver measures 13.7 cm. There is increased echogenicity consistent with fatty infiltration. Focal area of fatty sparing adjacent to the gallbladder fossa. The bile ducts are within normal limits. There is hepatic color flow. The direction of portal flow is hepatopetal. There is no demonstrated mass lesion. Gallbladder: Normal distended gallbladder. The gallbladder wall measures 1.9 mm. There is a negative sonographic Méndez''s sign. There is no pericholecystic fluid. There are no gallstones. Common Bile Duct (C.B.D.): The common bile duct measures 2.0 mm. Pancreas: Normal size of the head, body and tail of the pancreas. There is normal echogenicity of the pancreas. There is no demonstrated pancreatic mass or cyst. Right Kidney: Normal size of the right kidney. The right kidney measures 8.6 cm x 5.2 cm x 3.2 cm. Normal renal cortex. The right cortex measures 1.8 cm. There is no demonstrated renal mass or cyst. There is no right hydronephrosis. US/Abdomen Limited IMPRESSION: Fatty infiltration of the liver with a focal fatty sparing. Electronically Signed: Bernabe Stack MD at 15:31 EDT , Service support ,
== END ==
PROVIDERS: PCP Internal Medicine
DX: R11.0 Nausea (principal)
CPT/HCPCS: 76705